=== PATIENT | female | born 1935 | race Caucasian/White ===

== ENCOUNTER 2020-05-01 06:57 | Outpatient (NON) | payer MEDICARE, SELFPAY ==
[2020-05-01 18:51] LABS: SARS-CoV-2 RNA PCR Negative
== END 2020-05-01 06:58 ==
PROVIDERS: PCP Internal Medicine; Visit Provider Internal Medicine
DX: Z20.828 Contact with and (suspected) exposure to other viral communicable diseases (principal)
CPT/HCPCS: 87635; C9803; U0003

== ENCOUNTER 2020-10-29 12:38 | Outpatient (CLI) | payer MEDICARE, SELFPAY ==
--- NOTE | ~2020-10-29 | DEXA_ITS ---
Bone Density Report Name: Gayatri Connor Age: 85 Sex: Female Ethnicity: White Date of : 1935 Indication: postmenopausal; screening for osteoporosis; height loss; Referring Provider: Andre Mayen Study: Bone densitometry was performed. Exam Date: October 29, 2020 Accession number: [id number] Bone Density: Region BMD T-score Z-score Classification AP Spine(L1-L4) 0.654 -3.6 -0.7 Osteoporosis Femoral Neck (Left) 0.506 -3.1 -0.6 Osteoporosis Total Hip (Left) 0.650 -2.4 -0.1 Osteopenia Femoral Neck (Right) 0.544 -2.7 -0.2 Osteoporosis Total Hip (Right) 0.681 -2.1 0.2 Osteopenia Femoral Neck Mean 0.525 -2.9 -0.4 Osteoporosis Total Hip Mean 0.666 -2.3 0.1 Osteopenia World Health Organization criteria for BMD impression classify patients as: Normal (T-score at or above -1.0), Osteopenia (T-score between -1.0 and -2.5), or Osteoporosis (T-score at or below -2.5). 10-year Fracture Risk: FRAX not reported because: Some T-score for Spine Total or Hip Total or Femoral Neck at or below -2.5 Clinical Information Provided by Patient: Has used the following medications: Vitamin D, Calcium Patient maximum height was 62 No regular weight bearing exercise Does not regularly consume dairy products Onset of menses at age 14 Number of children 4 Impression: The patient has osteoporosis, based on the Total Spine T-score. Discussion: INCREASED RISK OF FRACTURE. BONE DENSITY IS UNDESIRABLY LOW AT ONE OR MORE SKELETAL SITES, CONSISTENT WITH POSTMENOPAUSAL OSTEOPOROSIS. This patient's lowest T-score meets the World Health Organization's (WHO) criteria for osteoporosis at one or more sites (T-score -2.5 or below). In untreated patients, the risk of osteoporotic fracture increases approximately two-fold for each 1.0 SD decrease in T-score. Low bone density is not the only risk factor for fracture; also consider factors such as patient's age, frailty or poor health, risk of falling, risk of injury, previous osteoporotic fracture, family history of osteoporosis, cigarette smoking, low body weight, etc. Not everyone with low bone mineral density has osteoporosis; osteomalacia and other metabolic bone disorders should also be considered. Patients who have osteoporosis should be evaluated for specific diseases and conditions (secondary causes) that may cause or contribute to bone loss. The [place] [employer]ocrinologists (AACE) and National Osteoporosis Foundation (NOF) recommend pharmacologic intervention for all postmenopausal women whose T-score is in this range. The patient should follow a healthful lifestyle (good nutrition with adequate calcium and vitamin D, and appropriate weight-bearing exercise). Follow-Up: Consider a repeat BMD and Vertebral Fracture Assessment (VFA) e
[2020-10-29 12:52] LABS: Basophils Absolute Auto 0.03 K/mm3 (0.00-0.10); Basophils Percent Auto 0.5 % (0.0-1.0); Eosinophils Percent Auto 3.3 % (1.0-6.0); Hematocrit 39.3 % (35.0-42.0); Hemoglobin 12.8 g/dL (11.7-13.8); Immature Granulocyte Absolute 0.03 K/mm3 (0.00-0.00); Immature Granulocyte Percent A 0.5 % (0.0-0.0); Lymphocytes Absolute Auto 1.95 K/mm3 (1.10-4.50); Lymphocytes Percent Auto 32.3 % (18.0-42.0); Mean Corpuscular HGB Conc 32.6 g/dL (32.0-36.0); Mean Corpuscular Hemoglobin 28.9 pg (27.0-31.0); Mean Corpuscular Volume 88.7 fL (78.0-102.0); Mean Platelet Volume 9.5 fl (9.2-11.8); Monocytes Absolute Auto 0.37 K/mm3 (0.10-0.90); Monocytes Percent Auto 6.1 % (2.0-11.0); Neutrophils Absolute Auto 3.5 K/mm3 (1.7-7.2); Neutrophils Percent Auto 57.3 % (50.0-70.0); Platelet Count Result 180 K/mm3 (150-420); Red Blood Count 4.43 M/mm3 (4.20-5.40); Red Cell Distribution Width 12.5 % (11.6-14.4)
[2020-10-29 13:46] LABS: Alanine Aminotransferase 32 U/L (14-59); Albumin Level 3.5 g/dL (3.4-5.0); Alkaline Phosphatase 75 U/L (46-116); Anion Gap 9 mmol/L (8-16); Aspartate Amino Transferase 19 U/L (15-37); Bilirubin,Total 0.4 mg/dL (0.00-1.00); Blood Urea Nitrogen 15 mg/dL (7-18); Calcium 9.1 mg/dL (8.5-10.1); Carbon Dioxide 28 mmol/L (21-32); Chloride 103 mmol/L (98-108); Cholesterol 144 mg/dL (0-200); Estimated Glomerular Filt Rate > 60; Glucose 104 mg/dL (70-99); HDL Direct 59 mg/dL (40-60); LDL Cholesterol Calculated 64 mg/dL (<130); Osmolality Calculated 290 mOsm/kg (285-295); Potassium 4.4 mmol/L (3.5-5.1); Sodium 140 mmol/L (136-145); Triglycerides 107 mg/dL (0-150)
[2020-10-29 13:48] LABS: Thyroid Stimulating Hormone Reflex 1.53 u/IU/mL (0.36-3.74)
[2020-10-31 18:45] LABS: Vitamin D 25 Hydroxy >150 ng/mL (30-100)
== END 2020-10-29 12:39 | disposition home or self-care (01) ==
LOC: CHSIMG 12:41
PROVIDERS: PCP Family Medicine; Visit Provider Family Medicine
DX: E03.9 Hypothyroidism, unspecified (principal); E78.2 Mixed hyperlipidemia; E55.9 Vitamin D deficiency, unspecified; Z78.0 Asymptomatic menopausal state
CPT/HCPCS: 36415; 77080; 80053; 80061; 82306; 84443; 85025

== ENCOUNTER 2020-12-20 13:52 | Outpatient (CLI) | payer MEDICARE, SELFPAY ==
--- NOTE | 2020-12-20 13:53 | ECHO_ITS ---
Patient Info Name: Gayatri Connor Age: 85 years : 1935 Gender: Female Ht: 61 in Wt: 130 lbs BSA: 1.60 m2 HR: 86 bpm BP: 133 / 62 mmHg Exam Date: 12/20/2020 2:17 PM Exam Location: [facility] Patient Status: Outpatient Admit Date: 12/20/2020 Staff Ordering Physician: Andre Mayen MD [employer] Consultant: Sixto Ruiz, RENETTA, RT Attending Provider: Andre Mayen MD Referring Physician: Tiarra WILSON; Exam Type: CA echo doppler color flow Study Info Indications R01.1 - Cardiac murmur, unspecified Complete two-dimensional, color flow and Doppler transthoracic echocardiogram is performed. Strain analysis performed. Summary 1. Complete two-dimensional, color flow and Doppler transthoracic echocardiogram is performed. 2. Left ventricular chamber dimension is normal. 3. Left ventricular systolic function is normal, estimated at 65-70%. 4. The left ventricular diastolic function is abnormal. 5. E/e' 10 is mildly elevated. 6. Global longitudinal strain is normal at -19.2%. 7. Left atrial chamber dimension is mildly enlarged. 8. No pulmonary hypertension, estimated pulmonary arterial systolic pressure is 28 mmHg. Left Ventricle E/e' 10 is mildly elevated. Global longitudinal strain is normal at -19.2%. Left ventricular chamber dimension is normal. Left ventricular systolic function is normal, estimated at 65-70%. The left ventricular diastolic function is abnormal. Right Ventricle Right ventricular systolic function is normal and normal TAPSE 1.8 cm. Right ventricular chamber dimension is normal. Left Atria Left atrial chamber dimension is mildly enlarged. Right Atria Right atrial chamber dimension is normal. Aortic Valve The aortic valve is trileaflet. There is no aortic valve stenosis. There is no aortic valve regurgitation. Pulmonic Valve There is no pulmonic regurgitation. Mitral Valve There is no mitral valve stenosis. There is no mitral valve regurgitation. Tricuspid Valve There is no tricuspid valve regurgitation. No pulmonary hypertension, estimated pulmonary arterial systolic pressure is 28 mmHg. Pericardium/Pleural There is no pericardial effusion. Inferior Vena Cava Normal inferior vena cava with >50% collapse upon inspiration consistent with normal right atrial pressure, 5 mmHg. Aorta The aortic root size at the sinus of Valsalva is normal. Left Ventricular Outflow Tract Name Value Normal LVOT 2D LVOT Diameter 2.0 cm LVOT Doppler LVOT Peak Velocity 168 cm/s LVOT Peak Gradient 11 mmHg LVOT Mean Gradient 8 mmHg LVOT VTI 31 cm LVOT VTI/AV VTI Ratio 0.8 LVOT Stroke Volume 93 ml Mitral Valve Name Value Normal MV Doppler MV Decel Slop
== END 2020-12-20 13:53 | disposition home or self-care (01) ==
LOC: CHSIMG 13:53
PROVIDERS: PCP Family Medicine; Visit Provider Family Medicine
DX: I35.8 Other nonrheumatic aortic valve disorders (principal); R42 Dizziness and giddiness
CPT/HCPCS: 93306

== ENCOUNTER 2021-07-24 15:35 | Outpatient (CLI) | payer MEDICARE, SELFPAY ==
[2021-07-24 16:31] LABS: Thyroid Stimulating Hormone Reflex 1.04 u/IU/mL (0.36-3.74)
== END 2021-07-24 15:36 | disposition home or self-care (01) ==
LOC: CHSLAB 15:37
PROVIDERS: PCP Family Medicine; Visit Provider Family Medicine
DX: E11.9 Type 2 diabetes mellitus without complications (principal); E03.9 Hypothyroidism, unspecified; N39.0 Urinary tract infection, site not specified
CPT/HCPCS: 36415; 84443; 87077; 87086; 87088; 87186

== ENCOUNTER 2022-02-27 13:40 | Outpatient (CLI) | payer MEDICARE, SELFPAY ==
[2022-02-27 13:55] LABS: Hematocrit 39.1 % (35.0-42.0); Hemoglobin 12.5 g/dL (11.7-13.8); Mean Corpuscular Hemoglobin 28.9 pg (27.0-31.0); Mean Corpuscular Volume 90.3 fL (78.0-102.0); Mean Platelet Volume 9.5 fl (9.2-11.8); Platelet Count Result 200 K/mm3 (150-420); Red Blood Count 4.33 M/mm3 (4.20-5.40); Red Cell Distribution Width 12.6 % (11.6-14.4); White Blood Count 8.9 K/mm3 (4.8-10.8)
[2022-02-27 14:35] LABS: Alanine Aminotransferase 25 U/L (14-59); Albumin Level 3.6 g/dL (3.4-5.0); Alkaline Phosphatase 71 U/L (46-116); Anion Gap 6 mmol/L (8-16); Aspartate Amino Transferase 18 U/L (15-37); Bilirubin,Total 0.4 mg/dL (0.00-1.00); Blood Urea Nitrogen 17 mg/dL (7-18); Carbon Dioxide 28 mmol/L (21-32); Chloride 105 mmol/L (98-108); Cholesterol 149 mg/dL (0-200); Estimated Glomerular Filt Rate > 60; Glucose 109 mg/dL (70-99); HDL Direct 72 mg/dL (40-60); LDL Cholesterol Calculated 61 mg/dL (<130); Osmolality Calculated 290 mOsm/kg (285-295); Potassium 4.1 mmol/L (3.5-5.1); Sodium 139 mmol/L (136-145); Total Protein 6.9 g/dL (6.4-8.2); Triglycerides 82 mg/dL (0-150)
[2022-02-27 14:55] LABS: Thyroid Stimulating Hormone Reflex 2.01 u/IU/mL (0.36-3.74)
[2022-03-03 13:33] LABS: Vitamin D 1,25 (OH)2 Total 53 pg/mL (18-72); Vitamin D2 1,25 (OH)2 <8 pg/mL; Vitamin D3 1,25 (OH)2 53 pg/mL
== END 2022-02-27 13:41 | disposition home or self-care (01) ==
LOC: CHSLAB 13:41
PROVIDERS: PCP Family Medicine; Visit Provider Family Medicine
DX: E55.9 Vitamin D deficiency, unspecified (principal); E03.9 Hypothyroidism, unspecified; E78.2 Mixed hyperlipidemia; E11.9 Type 2 diabetes mellitus without complications
CPT/HCPCS: 36415; 80053; 80061; 82652; 84443; 85027

== ENCOUNTER 2022-05-28 15:10 | Outpatient (CLI) | payer MEDICARE, SELFPAY ==
[2022-05-28 15:27] LABS: Basophils Absolute Auto 0.03 K/mm3 (0.00-0.10); Basophils Percent Auto 0.3 % (0.0-1.0); Eosinophils Absolute Auto 0.14 K/mm3 (0.02-0.50); Eosinophils Percent Auto 1.5 % (1.0-6.0); Hematocrit 39.9 % (35.0-42.0); Hemoglobin 13.1 g/dL (11.7-13.8); Immature Granulocyte Absolute 0.03 K/mm3 (0.00-0.00); Immature Granulocyte Percent A 0.3 % (0.0-0.0); Lymphocytes Absolute Auto 1.73 K/mm3 (1.10-4.50); Lymphocytes Percent Auto 18.5 % (18.0-42.0); Mean Corpuscular HGB Conc 32.8 g/dL (32.0-36.0); Mean Corpuscular Hemoglobin 29.1 pg (27.0-31.0); Mean Corpuscular Volume 88.7 fL (78.0-102.0); Mean Platelet Volume 9.4 fl (9.2-11.8); Monocytes Absolute Auto 0.65 K/mm3 (0.10-0.90); Neutrophils Absolute Auto 6.8 K/mm3 (1.7-7.2); Neutrophils Percent Auto 72.4 % (50.0-70.0); Platelet Count Result 211 K/mm3 (150-420); Red Cell Distribution Width 12.6 % (11.6-14.4); White Blood Count 9.3 K/mm3 (4.8-10.8)
[2022-05-28 16:25] LABS: Alanine Aminotransferase 27 U/L (14-59); Albumin Level 3.6 g/dL (3.4-5.0); Alkaline Phosphatase 72 U/L (46-116); Anion Gap 5 mmol/L (8-16); Aspartate Amino Transferase 18 U/L (15-37); Bilirubin,Total 0.4 mg/dL (0.00-1.00); Blood Urea Nitrogen 10 mg/dL (7-18); Carbon Dioxide 31 mmol/L (21-32); Chloride 102 mmol/L (98-108); Estimated Glomerular Filt Rate > 60; Glucose 111 mg/dL (70-99); Iron 66 ug/dL (50-170); Osmolality Calculated 286 mOsm/kg (285-295); Percent Iron Saturation 22 % (12-57); Potassium 3.9 mmol/L (3.5-5.1); Sodium 138 mmol/L (136-145); Thyroid Stimulating Hormone 2.16 uIU/mL (0.36-3.74); Total Protein 7.2 g/dL (6.4-8.2)
[2022-06-01 09:39] LABS: Gliadin AB, IgG <1.0 U/mL (<15.0); TTG IGA AB <1.0 U/mL (<15.0)
[2022-06-02 15:08] LABS: Red Blood Cell Folate 673 ng/mL RBC (>280)
== END 2022-05-28 15:11 | disposition home or self-care (01) ==
LOC: CHSLAB 15:11
PROVIDERS: PCP Nurse Practitioner Family; Visit Provider Nurse Practitioner Family
DX: E03.9 Hypothyroidism, unspecified (principal); R63.0 Anorexia; R11.0 Nausea; D64.9 Anemia, unspecified
CPT/HCPCS: 36415; 80053; 82747; 83516; 83540; 83550; 84439; 84443; 85025; 86255

== ENCOUNTER 2022-05-30 15:25 | Outpatient (CLI) | payer MEDICARE, SELFPAY ==
[2022-05-30 15:55] LABS: Add Urine Microscopic? YES; Bilirubin Urine Negative (Negative); Blood Urine 2+ (Negative); Color Urine Light Yellow (Yellow); Glucose Urine UA Negative (Negative); Ketones Urine Negative (Negative); Leukocyte Esterase Ur 3+ LEU/UL (Negative); Nitrate Urine Negative (Negative); Protein Urine Negative (Negative); Specific Grav Ur 1.015 (1.010-1.020); Urobilinogen Urine 0.2 mg/dL (0.2-1.0); pH Urine 8.5 (5.0-8.0)
[2022-05-30 16:01] LABS: Appearance Urine Turbid (Clear); Bacteria Urine 4+ /hpf; Squamous Epithelial Cell Urine Few /hpf (Few); WBC Urine >75 /hpf (0-3)
== END 2022-05-30 15:26 | disposition home or self-care (01) ==
LOC: CHSLAB 15:28
PROVIDERS: PCP Nurse Practitioner Family; Visit Provider Nurse Practitioner Family
DX: R42 Dizziness and giddiness (principal); R11.10 Vomiting, unspecified; R11.0 Nausea; N81.10 Cystocele, unspecified; R82.90 Unspecified abnormal findings in urine
CPT/HCPCS: 81001; 87077; 87086; 87088; 87186

== ENCOUNTER 2022-07-25 12:40 | Emergency (ER) | payer MEDICARE, SELFPAY ==
--- NOTE | ~2022-07-25 | CT_ITS ---
EXAMINATION: CT abdomen pelvis wo con DATE: 07/25/2022 13:41 INDICATION: Nausea, vomiting, and diarrhea. TECHNIQUE: Computed tomography (CT) of the abdomen and pelvis was performed without intravenous contr ast. Automated exposure control and iterative reconstruction technique were employed. The dose-length product was 256.46 mGy-cm. COMPARISON: CT abdomen 07/15/2018 FINDINGS: The visualized portions of the lung bases demonstrate mild atelectasis. No pleural effusion . The heart size is normal. There are coronary artery calcifications. No pericardial effusion. There is fluid in the esophagus. There are surgical clips around the proximal stomach. There are cysts in t he liver measuring up to 14 mm. The common duct is dilated to 11 mm. The gallbladder, spleen, pancrea s, and adrenal glands are normal. There is a 12 mm mass of right kidney measuring soft tissue attenua tion. There is a 7 mm hemorrhagic cyst in left kidney. There are no dilated loops of bowel. There are no pathologically enlarged lymph nodes. There is no free intraperitoneal fluid. There is diverticulo sis of the colon without evidence of diverticulitis. There is a large volume of stool in the proximal colon with distention of the ascending colon. There are no pathologically enlarged lymph nodes. Ther e is no free intraperitoneal fluid. There is severe lower lumbar spondylosis. IMPRESSION: 1. Mildly dilated common duct, new from 07/15/18. 2. Large volume of stool in the proximal colon with distention of the ascending colon. 3. 12 mm right kidney mass which enhanced on prior imaging, consistent with renal cell carcinoma. Reviewed, dictated and finalized at location A. RIGGER IMPRESSION: 1. Mildly dilated common duct, new from 07/15/18. 2. Large volume of stool in the proximal colon with distention of the ascending colon. 3. 12 mm right kidney mass which enhanced on prior imaging, consistent with andrea al cell carcinoma.
[2022-07-25 12:40] VITALS: BP 113/69; PULSE 90; RESP 18; TEMP 37.3; O2SAT 98
--- NOTE | 2022-07-25 12:46 | ED.NAVMDI ---
HPI - Nausea/Vomiting/Diarrhea General Chief complaint: Nausea/Vomiting/Diarrhea Stated complaint: Sick/Dizziness Time Seen by Provider: 07/25/22 12:40 Source: patient Mode of arrival: ambulatory Limitations: no limitations History of Present Illness HPI Narrative: 87 year old female is sent to the Emergency Department from Primary Care Providers office for evaluation. Patient has been having nausea and vomiting for several days. States she is unable to keep anything down. She states she did have very small bowel movement yesterday. Has been using Miralax. Denies any significant abdominal pain, but has some discomfort lower abdomen. Denies any urinary tract symptoms. Patient's daughter also states patient has had some dizziness or light headedness for past several months. This occurs when she changes positions or gets up and goes away after short time. Denies chest pain or shortness of breath. MD elicited complaint: nausea and vomiting Onset (ago): day(s) Description of vomiting: food contents Associated nausea: Yes Associated abdominal pain: Yes (mild lower abdominal discomfort) Location of pain: LLQ and suprapubic Severity: mild Quality: cramping Exacerbating factors: eating Relieving factors: none Associated symptoms: denies other symptoms Treatment prior to arrival: other (zofran) Related Data Home Medications Medication Instructions Recorded Confirmed multivitamin,ow-ztme-kbnxzxak 1 tablet PO DAILY 04/12/20 07/25/22 (Complete Multivitamin tablet) omega-3 fatty acids 1,000 mg 1,000 mg PO DAILY 04/12/20 07/25/22 capsule (Fish Oil Concentrate) multivitamin with iron (Daily 1 tablet PO DAILY 10/25/20 07/25/22 Multiple Vitamins with Iron tablet) Allergies Allergy/AdvReac Type Severity Reaction Status Date / Time aspirin Allergy Unknown Rash Verified 07/25/22 11:34 codeine Allergy Unknown Unknown Verified 07/25/22 11:34 iodine Allergy Unknown Unknown Verified 07/25/22 11:34 latex Allergy Unknown Unknown Verified 07/25/22 11:34 levofloxacin Allergy Unknown Unknown Verified 07/25/22 11:34 mold Allergy Unknown Unknown Verified 07/25/22 11:34 pollen extracts Allergy Unknown Unknown Verified 07/25/22 11:34 Latex, Natural Rubber AdvReac Mild ITCHY, RASH Verified 07/25/22 11:34 Review of Systems Review of Systems: All systems reviewed & are unremarkable except as noted in HPI and below Constitutional: Constitutional: Reports as per HPI, Reports no additional constitutional complaints, Denies chills, Denies fever(s) and Denies weakness Eyes: Eyes: Reports as per HPI and Reports no additional eye complaints ENT: Reports system reviewed and no additional complaints, except as documented, Reports as per HPI, Reports dizziness, Denies nasal congestion and Denies sore throat Cardiovascular: Cardiovascular: Reports as per HPI, Reports no additional cardiovascular complaints, Denies chest pain, Denies rapid heart rate and Denies slow heart rate Respiratory: Respiratory: Reports as per HPI, Reports no additional respiratory complaints, Denies chest congestion, Denies cough and Denies dyspnea Gastrointestinal: Gastrointestinal: Reports as per HPI, Reports no additional gastrointestinal complaints, Denies diarrhea, Reports nausea and Reports vomiting Genitourinary: Genitourinary: Reports no additional female genitourinary complaints, Reports as per HPI, Denies nocturia, Denies dysuria and Denies flank pain Musculoskeletal: Musculoskeletal: Reports no additional musculoskeletal complaints, Reports as per HPI, Denies back pain and Denies myalgias Integumentary/Breasts: Skin/Breast: Reports system reviewed and no additional complaints, except as docu and Reports as per HPI Neurologic: Reports system reviewed and no additional complaints, except as documented, Reports as per HPI and Reports dizziness (initially when getting up) Psychiatric: Psychiatric: Reports no additional psychiatric complaints and Reports as per HPI Endocrine:
[2022-07-25 13:01] LABS: Basophils Absolute Auto 0.02 K/mm3 (0.00-0.10); Basophils Percent Auto 0.2 % (0.0-1.0); Eosinophils Absolute Auto 0.08 K/mm3 (0.02-0.50); Eosinophils Percent Auto 0.9 % (1.0-6.0); Hematocrit 38.9 % (35.0-42.0); Hemoglobin 13.1 g/dL (11.7-13.8); Immature Granulocyte Absolute 0.03 K/mm3 (0.00-0.00); Immature Granulocyte Percent A 0.4 % (0.0-0.0); Lymphocytes Absolute Auto 1.65 K/mm3 (1.10-4.50); Lymphocytes Percent Auto 19.5 % (18.0-42.0); Mean Corpuscular HGB Conc 33.7 g/dL (32.0-36.0); Mean Corpuscular Hemoglobin 29.8 pg (27.0-31.0); Mean Corpuscular Volume 88.6 fL (78.0-102.0); Mean Platelet Volume 9.7 fl (9.2-11.8); Monocytes Absolute Auto 0.49 K/mm3 (0.10-0.90); Monocytes Percent Auto 5.8 % (2.0-11.0); Neutrophils Absolute Auto 6.2 K/mm3 (1.7-7.2); Neutrophils Percent Auto 73.2 % (50.0-70.0); Platelet Count Result 221 K/mm3 (150-420); Red Blood Count 4.39 M/mm3 (4.20-5.40); Red Cell Distribution Width 12.6 % (11.6-14.4); White Blood Count 8.5 K/mm3 (4.8-10.8)
[2022-07-25 13:04] LABS: Appearance Urine Clear (Clear); Bilirubin Urine Negative (Negative); Blood Urine 1+ (Negative); Color Urine Yellow (Yellow); Glucose Urine UA Negative (Negative); Ketones Urine Negative (Negative); Leukocyte Esterase Ur 3+ LEU/UL (Negative); Nitrate Urine Negative (Negative); Protein Urine Negative (Negative); Urobilinogen Urine 0.2 mg/dL (0.2-1.0)
[2022-07-25 13:11] LABS: Add Urine Microscopic? YES; RBC Urine 0-2 /hpf (0-2)
[2022-07-25 13:12] LABS: Bacteria Urine 4+ /hpf; Squamous Epithelial Cell Urine Rare /hpf (Few); WBC Urine >75 /hpf (0-3)
[2022-07-25 13:14] LABS: Alanine Aminotransferase 24 U/L (14-59); Albumin Level 3.5 g/dL (3.4-5.0); Alkaline Phosphatase 73 U/L (46-116); Amylase 37 U/L (25-115); Anion Gap 10 mmol/L (8-16); Aspartate Amino Transferase 15 U/L (15-37); Bilirubin,Total 0.4 mg/dL (0.00-1.00); Blood Urea Nitrogen 13 mg/dL (7-18); Calcium 9.4 mg/dL (8.5-10.1); Carbon Dioxide 26 mmol/L (21-32); Chloride 104 mmol/L (98-108); Estimated CRCL calculation 33 ml/min; Estimated Glomerular Filt Rate > 60; Glucose 141 mg/dL (70-99); Lipase 13 U/L (16-77); Osmolality Calculated 292 mOsm/kg (285-295); Sodium 140 mmol/L (136-145); Total Protein 7.5 g/dL (6.4-8.2)
[2022-07-25] MEDS: SODIUM CHLORIDE 0.9% IV 1,000 ML 150 ML IV CONT (13:17)
[2022-07-25] MEDS: ONDANSETRON INJ 4 MG/2 ML VIAL IV PUSH (13:17)
[2022-07-25 14:22] VITALS: BP 134/73; PULSE 84; RESP 20; TEMP 37.3; O2SAT 97
[2022-07-25 14:23] VITALS: BP 134/73; PULSE 74; RESP 18; TEMP 37.3; O2SAT 97
--- NOTE | 2022-07-29 13:07 | PC.NURSE ---
final urine culture report reviewed. >100,000 E. coli found, pt prescribed macrobid at discharge. no change in plan of care.
== END 2022-07-25 14:34 | disposition home or self-care (01) ==
PROVIDERS: Emergency Provider Emergency Medicine; PCP Family Medicine
DX: N28.89 Other specified disorders of kidney and ureter (principal); N39.0 Urinary tract infection, site not specified; R11.10 Vomiting, unspecified; E78.2 Mixed hyperlipidemia; E03.9 Hypothyroidism, unspecified; Z87.891 Personal history of nicotine dependence
CPT/HCPCS: 36415; 74176; 80053; 81001; 82150; 83690; 85025; 87077; 87086; 87088; 87186; 96361; 96374; 99284; J2405; J7030

== ENCOUNTER 2022-09-22 08:48 | Day surgery (SDC) | payer MEDICARE, SELFPAY ==
[2022-09-03 10:53] VITALS: BMI 21.3
--- NOTE | 2022-09-09 08:21 | PM.HPGS ---
History of Present Illness History of Present Illness Consent: Risks, benefits, and alternatives have been discussed and questions answered. Patient agrees to proceed with procedure. Chief complaint: Gerd Narrative: Gayatri Connor is a 87 year old female with dysphagia. Food does not get stuck when he is eating, but she often feels as though there is something that is caught in her throat. She also has lost her appetite. Since she had COVID in April she does not feel like eating often and has consequently lost about 15 lb. She denies abdominal pain. Review of Systems Review of Systems: All systems reviewed & are unremarkable except as noted in HPI and below PMFSH Past Medical History Medical History Anxiety Bladder prolapse, female, acquired Exocrine pancreatic insufficiency Hypothyroidism (acquired) Major depression, recurrent, chronic Mixed hyperlipidemia Personal history of colonic polyps Vitamin D deficiency, unspecified Surgical History Surgical History History of esophageal surgery History of hysterectomy Family History Family History Other Asthma Carcinoma of colon Cerebrovascular accident Diabetes mellitus Family history of arthritis Family history of cardiovascular disease Social History Social History Smoking status: Never smoker Smoking end date: 05/25/69 Alcohol intake: former Substance use: never Substance use type: does not use Living arrangements: alone Occupation/Education: retired Spiritual care concerns: No Meds Home Medications and Allergies Home Medications Medication Instructions Recorded Confirmed Type multivitamin,oj-clxx-jmntisvm 1 tablet PO DAILY 04/12/20 09/22/22 History (Complete Multivitamin tablet) paroxetine HCl 40 mg tablet 40 mg PO DAILY 90 days #90 tabs 10/02/21 09/22/22 Rx omeprazole 20 mg capsule,delayed See Rx Instructions .Route 10/28/21 09/22/22 Rx release .COMPLEX #90 caps rosuvastatin 20 mg tablet 20 mg PO DAILY #90 tabs 01/22/22 09/22/22 Rx cholecalciferol (vitamin D3) 1,250 1,250 mcg PO 2XW #27 caps 03/17/22 09/22/22 Rx mcg (50,000 unit) capsule Synthroid 50 mcg tablet 50 mcg PO DAILY #90 tabs 04/23/22 09/22/22 Rx (levothyroxine) ubuudm-akvhxqea-jiskbpt 2 cap PO TID 08/01/22 09/22/22 History 25,000-79,000-105,000 unit capsule,delayed rel (Zenpep) lactulose 20 gram/30 mL oral 20 g (30 mL) PO BID PRN 08/28/22 09/22/22 Rx solution constipation #1,200 mL Allergies Allergy/AdvReac Type Severity Reaction Status Date / Time aspirin Allergy Unknown GI-BLEED Verified 09/22/22 09:51 codeine Allergy Unknown Fatigued Verified 09/22/22 09:51 iodine Allergy Unknown CHEST Verified 09/22/22 09:51 PRESSURE latex Allergy Unknown ITYCY, RASH Verified 09/22/22 09:51 levofloxacin Allergy Unknown Joint Pain Verified 09/22/22 09:51 mold Allergy Unknown RESPITORY Verified 09/22/22 09:51 DISTRESS pollen extracts Allergy Unknown RESPITORY Verified 09/22/22 09:51 DISTRESS sulfamethoxazole AdvReac Intermediate Shakes Verified 09/22/22 09:51 [From Bactrim] trimethoprim [From Bactrim] AdvReac Intermediate Shakes Verified 09/22/22 09:51 Latex, Natural Rubber AdvReac Mild ITCHY, RASH Verified 09/22/22 09:51 Exam Const: General: alert Orientation/consciousness: patient oriented x3 Resp: Auscultation: clear to auscultation bilaterally Cardio: Rhythm: regular rhythm GI: GI Palp: Yes Soft to palpation and No Tenderness to palpation present (GI) Neuro: General: patient oriented x3 Assessment and Plan Assessment and plan (1) Dysphagia: Code(s): R13.10 - Dysphagia, unspecified Status: Acute Assessment and Plan: EGD with possible biopsy or dilatation or cautery.
[2022-09-22 09:20] VITALS: BP 128/92; PULSE 88; RESP 20; TEMP 36.7; O2SAT 97
--- NOTE | 2022-09-22 09:37 | WPDANESEPPF ---
Anes - Initial Pre Proc Eval Procedure: Operation Date: 09/22/22 10:30 Proposed Procedures p Esophagogastroduodenoscopy - Dejuan Grijalva MD Date/Time: 09/22/22 09:37 Surgeon: Dejuan Grijalva MD Pre Op Diagnosis: Gerd Patient Data Age: 87 Gender: F Height: 1.57 m Weight: 53 kg Allergies Allergy/AdvReac Type Severity Reaction Status Date / Time aspirin Allergy Unknown GI-BLEED Verified 08/28/22 10:45 codeine Allergy Unknown Fatigued Verified 08/28/22 10:45 iodine Allergy Unknown CHEST Verified 08/28/22 10:45 PRESSURE latex Allergy Unknown ITYCY, RASH Verified 08/28/22 10:45 levofloxacin Allergy Unknown Joint Pain Verified 08/28/22 10:45 mold Allergy Unknown RESPITORY Verified 08/28/22 10:45 DISTRESS pollen extracts Allergy Unknown RESPITORY Verified 08/28/22 10:45 DISTRESS sulfamethoxazole AdvReac Intermediate Shakes Verified 08/28/22 10:45 [From Bactrim] trimethoprim [From Bactrim] AdvReac Intermediate Shakes Verified 08/28/22 10:45 Latex, Natural Rubber AdvReac Mild ITCHY, RASH Verified 08/28/22 10:45 Home Medications Medication Instructions Recorded Confirmed Type multivitamin,hv-rsmm-yzkckgii 1 tablet PO DAILY 04/12/20 09/03/22 History (Complete Multivitamin tablet) paroxetine HCl 40 mg tablet 40 mg PO DAILY 90 days #90 tabs 10/02/21 09/03/22 Rx omeprazole 20 mg capsule,delayed See Rx Instructions .Route 10/28/21 09/03/22 Rx release .COMPLEX #90 caps rosuvastatin 20 mg tablet 20 mg PO DAILY #90 tabs 01/22/22 09/03/22 Rx cholecalciferol (vitamin D3) 1,250 1,250 mcg PO 2XW #27 caps 03/17/22 09/03/22 Rx mcg (50,000 unit) capsule Synthroid 50 mcg tablet 50 mcg PO DAILY #90 tabs 04/23/22 09/03/22 Rx (levothyroxine) ynvtiu-zllyejmm-hyihlxt 2 cap PO TID 08/01/22 09/03/22 History 25,000-79,000-105,000 unit capsule,delayed rel (Zenpep) lactulose 20 gram/30 mL oral 20 g (30 mL) PO BID PRN 08/28/22 08/28/22 Rx solution constipation #1,200 mL Patient hx anesthesia problems: none Family hx anesthesia problems: none Results Review: All pre-operative results and documents have been reviewed as part of the pre-operative evaluation. [facility] Past Medical History Medical History Anxiety Bladder prolapse, female, acquired Exocrine pancreatic insufficiency Hypothyroidism (acquired) Major depression, recurrent, chronic Mixed hyperlipidemia Personal history of colonic polyps Vitamin D deficiency, unspecified Surgical History Surgical History History of esophageal surgery History of hysterectomy Family History Family History Other Asthma Carcinoma of colon Cerebrovascular accident Diabetes mellitus Family history of arthritis Family history of cardiovascular disease Social History Social History Smoking status: Never smoker Smoking end date: 05/25/69 Alcohol intake: former Substance use: never Substance use type: does not use Living arrangements: alone Occupation/Education: retired Spiritual care concerns: No Anes - Eval Final PreProcedure Day of Procedure 09/22/22 09:37 Patient weight: normal Heart: regular rate and rhythm Lungs: clear to auscultation Airway: Mallampati scale class II Neurological: alert and oriented Last oral intake: >/= 8 hours ASA classification: II Emergent: no Anesthetic plan: proceed Anesthesia type and monitoring: general GIVS and standard monitoring Results Review: All pre-operative results and documents have been reviewed as part of the pre-operative evaluation. Informed Consent: The patient's anesthetic plan and its attendant risks and benefits were discussed with the patient/family/POA. Questions were solicited and answers provided to the satisfaction of the patient
[2022-09-22] MEDS: LACTATED RINGERS 1,000 ML 150 ML IV CONT (09:53)
[2022-09-22 10:34] VITALS: BP 137/62; PULSE 75; RESP 16; O2SAT 96
[2022-09-22 10:44] VITALS: BP 120/72; PULSE 97; RESP 16; O2SAT 97
[2022-09-22 10:54] VITALS: BP 131/73; PULSE 72; RESP 20; O2SAT 96
--- NOTE | 2022-09-22 11:01 | WPDANESPN ---
Anes - Prog Note Post-Op Date/Time: 09/22/22 11:01 Cardiovascular status: normal Respiratory status: normal Airway patency: baseline Mental status: baseline Post-Op hydration status: normal Vital Signs: Last Vital Signs Temp 36.7 C 09/22/22 09:20 Pulse 72 09/22/22 10:54 Resp 20 09/22/22 10:54 BP 131/73 09/22/22 10:54 Pulse Ox 96 09/22/22 10:54 O2 Del Method Room Air 09/22/22 10:54 Pain Score (VAS): 0 I/O: Intake & Output 09/21/22 09/22/22 09/22/22 23:59 07:59 15:59 Intake Total 400 Balance 400 Patient Feedback: Patient satisfied with anesthetic care.
== END 2022-09-22 11:15 | disposition home or self-care (01) ==
PROVIDERS: PCP Family Medicine; Visit Provider Internal Medicine Gastroenterology
PROC: 0DJ08ZZ Inspection of Upper Intestinal Tract, Via Natural or Artificial Opening Endoscopic (ICD-10-PCS; CPT 43235; principal; 2022-09-22 10:30)
DX: R13.10 Dysphagia, unspecified (principal)
CPT/HCPCS: 43239

== ENCOUNTER 2022-09-22 09:00 | Outpatient (NON) | payer MEDICARE, SELFPAY | END 2022-09-22 09:01 | disposition home or self-care (01) | LOC: ANHLAB 09-23 07:42 | PROVIDERS: PCP Family Medicine; Visit Provider Internal Medicine Gastroenterology | DX: K21.9 Gastro-esophageal reflux disease without esophagitis (principal) | CPT/HCPCS: 88305; 88312 ==

== ENCOUNTER 2022-11-06 15:55 | Outpatient (NON) | payer MEDICARE, SELFPAY | END 2022-11-06 15:56 | disposition home or self-care (01) | LOC: CHSLAB 15:57 | PROVIDERS: Visit Provider Nurse Practitioner Family | DX: R42 Dizziness and giddiness (principal); N39.0 Urinary tract infection, site not specified | CPT/HCPCS: 87077; 87086; 87088; 87186 ==

== ENCOUNTER 2023-01-25 12:45 | Emergency (ER) | payer MEDICARE, SELFPAY ==
--- NOTE | ~2023-01-25 | CT_ITS ---
EXAMINATION: CT brain wo con INDICATION: Dizziness COMPARISON: None TECHNIQUE: Standard unenhanced head CT. The dose-length product (DLP) was 605.33 mGy-cm. The mA was a djusted according to patient size. Iterative reconstruction technique was employed. FINDINGS: No acute intraparenchymal hemorrhage. No evidence of mass lesion. No evidence of acute infa rction. There is mild periventricular and subcortical hypodensity probably related to small vessel is chemic disease. There is mild prominence of the sulci and ventricles related to cerebral atrophy. Int racranial calcified cerebral atherosclerosis is noted. No extra-axial collections. No mass effect or midline shift. Changes in the globes are likely from ocular lens surgery. There is mild mucosal thick ening of the paranasal sinuses. IMPRESSION: 1. No acute intracranial abnormality. 2. Age related findings. Reviewed, dictated and finalized at location A.
--- NOTE | ~2023-01-25 | XR_ITS ---
EXAMINATION: XR chest 2V DATE: 01/25/2023 13:17 INDICATION: Nausea and vomiting TECHNIQUE: PA and lateral views of the chest are obtained. COMPARISON: 01/20/2017 FINDINGS: The lungs are free of acute opacities. No pleural effusion or pneumothorax. The cardiomedia stinal silhouette is normal. There is moderate thoracic spondylosis. Changes of hiatal hernia repair are noted. IMPRESSION: 1. No acute cardiopulmonary abnormality. Reviewed, dictated and finalized at location A.
--- NOTE | 2023-01-25 12:47 | ECG_ITS ---
Measurements Intervals [place] Rate: 76 P: 45 MT: 155 QRS: 34 QRSD: 82 T: 47 QT: 380 QTc: 428 Interpretive Statements SINUS RHYTHM BASELINE ARTIFACT- I, II, III, AVR, AVL, AVF, V1-V2 NORMAL ECG NO PREVIOUS ECG AVAILABLE FOR COMPARISON Electronically Signed On 01-25-2023 16:52:13 CDT by Harley Vincent D.O.
[2023-01-25 12:49] VITALS: BP 144/82; PULSE 84; RESP 16; TEMP 37.2; O2SAT 98
--- NOTE | 2023-01-25 12:54 | ED.DIZZY ---
HPI - Dizziness General Chief Complaint: Dizziness Stated Complaint: vomiting Time Seen by Provider: 01/25/23 12:47 Source: patient and family Mode of arrival: ambulatory Limitations: no limitations History of Present Illness HPI Narrative: patient is an 87-year-old female with wooziness and dizziness on and off for many months but has gotten worse over the past 2 days. She also has GI reflux and had an upper endoscopy done with minimal findings recently. She has been having nausea and some vomiting with phlegm type vomit. She has been unable to eat or drink lately due to some of the nausea vomiting issues. No chest pain today but had some chest pain a couple weeks ago. MD elicited complaint: dizziness and lightheadedness Onset (ago): month(s) ( She has been having difficulty similar to this over months but worse today) Timing: gradual onset Severity: moderate Description: lightheadedness Context: change in body position History of similar symptoms: Yes Exacerbating factors: movement/ambulation and change in body position Relieving factors: nothing Associated symptoms: nausea, vomiting, chest pain, malaise and weakness Stroke scale total: 0 Related Data Home Medications Medication Instructions Recorded Confirmed multivitamin,kd-kwoc-myxlzodb 1 tablet PO DAILY 04/12/20 01/25/23 (Complete Multivitamin tablet) Allergies Allergy/AdvReac Type Severity Reaction Status Date / Time aspirin Allergy Unknown GI-BLEED Verified 11/06/22 10:38 codeine Allergy Unknown Fatigued Verified 11/06/22 10:38 iodine Allergy Unknown CHEST Verified 11/06/22 10:38 PRESSURE latex Allergy Unknown ITYCY, RASH Verified 11/06/22 10:38 levofloxacin Allergy Unknown Joint Pain Verified 11/06/22 10:38 mold Allergy Unknown RESPITORY Verified 11/06/22 10:38 DISTRESS pollen extracts Allergy Unknown RESPITORY Verified 11/06/22 10:38 DISTRESS sulfamethoxazole AdvReac Intermediate Shakes Verified 11/06/22 10:38 [From Bactrim] trimethoprim [From Bactrim] AdvReac Intermediate Shakes Verified 11/06/22 10:38 Latex, Natural Rubber AdvReac Mild ITCHY, RASH Verified 11/06/22 10:38 Review of Systems Review of Systems: All systems reviewed & are unremarkable except as noted in HPI and below Constitutional: Constitutional: Reports no additional constitutional complaints Eyes: Eyes: Reports no additional eye complaints ENT: Reports system reviewed and no additional complaints, except as documented Cardiovascular: Cardiovascular: Reports no additional cardiovascular complaints Respiratory: Respiratory: Reports no additional respiratory complaints Gastrointestinal: Gastrointestinal: Reports no additional gastrointestinal complaints Genitourinary: Genitourinary: Reports no additional female genitourinary complaints Musculoskeletal: Musculoskeletal: Reports no additional musculoskeletal complaints Integumentary/Breasts: Skin/Breast: Reports system reviewed and no additional complaints, except as docu Neurologic: Reports system reviewed and no additional complaints, except as documented Psychiatric: Psychiatric: Reports no additional psychiatric complaints Endocrine: Endocrine: Reports no additional endocrine complaints Hematologic/Lymphatic: Hematologic/Lymphatic: Reports no additional hematologic/lymphatic complaints Allergic/Immunologic: Allergic/Immunologic: Reports no additional allergic/immunologic complaints PMFSH Past Medical History Medical History Anxiety Bladder prolapse, female, acquired Exocrine pancreatic insufficiency Hypothyroidism (acquired) Major depression, recurrent, chronic Mixed hyperlipidemia Personal history of colonic polyps Vitamin D deficiency, unspecified Surgical History Surgical History History of esophageal surgery History of hysterectomy Family History Family History (Reviewed
[2023-01-25 13:34] LABS: Basophils Absolute Auto 0.02 K/mm3 (0.00-0.10); Basophils Percent Auto 0.3 % (0.0-1.0); Eosinophils Absolute Auto 0.15 K/mm3 (0.02-0.50); Hemoglobin 13.4 g/dL (11.7-13.8); Immature Granulocyte Absolute 0.04 K/mm3 (0.00-0.00); Immature Granulocyte Percent A 0.5 % (0.0-0.0); Lymphocytes Absolute Auto 1.61 K/mm3 (1.10-4.50); Mean Corpuscular HGB Conc 33.5 g/dL (32.0-36.0); Mean Corpuscular Hemoglobin 29.5 pg (27.0-31.0); Mean Corpuscular Volume 88.1 fL (78.0-102.0); Mean Platelet Volume 9.6 fl (9.2-11.8); Monocytes Absolute Auto 0.59 K/mm3 (0.10-0.90); Monocytes Percent Auto 8.1 % (2.0-11.0); Neutrophils Absolute Auto 4.9 K/mm3 (1.7-7.2); Neutrophils Percent Auto 67.1 % (50.0-70.0); Platelet Count Result 211 K/mm3 (150-420); Red Blood Count 4.54 M/mm3 (4.20-5.40); Red Cell Distribution Width 12.8 % (11.6-14.4); White Blood Count 7.3 K/mm3 (4.8-10.8)
[2023-01-25 13:52] LABS: Lactic Acid Reflex 1.6 mmol/L (0.4-2.0)
[2023-01-25 13:57] LABS: Alanine Aminotransferase 22 U/L (14-59); Albumin Level 3.6 g/dL (3.4-5.0); Alkaline Phosphatase 67 U/L (46-116); Anion Gap 7 mmol/L (8-16); Aspartate Amino Transferase 13 U/L (15-37); Bilirubin,Total 0.5 mg/dL (0.00-1.00); Blood Urea Nitrogen 20 mg/dL (7-18); Calcium 9.4 mg/dL (8.5-10.1); Carbon Dioxide 30 mmol/L (21-32); Chloride 101 mmol/L (98-108); Estimated Glomerular Filt Rate > 60; Glucose 114 mg/dL (70-99); NT Pro B Type Natriuretic Pept 189 pg/mL (0-450); Osmolality Calculated 289 mOsm/kg (285-295); Potassium 3.9 mmol/L (3.5-5.1); Sodium 138 mmol/L (136-145); Total Protein 7.4 g/dL (6.4-8.2); Troponin I 15.9 ng/L (0.00-60.4)
[2023-01-25] MEDS: ONDANSETRON HCL ODT 4 MG TABLET PO (15:00)
[2023-01-25] MEDS: MECLIZINE HCL 25 MG TABLET PO (15:00)
[2023-01-25 16:03] LABS: Bilirubin Urine Negative (Negative); Blood Urine 1+ (Negative); Color Urine Light Yellow (Yellow); Glucose Urine UA Negative (Negative); Ketones Urine Negative (Negative); Leukocyte Esterase Ur Negative LEU/UL (Negative); Nitrate Urine Negative (Negative); Protein Urine Negative (Negative); Specific Grav Ur 1.015 (1.010-1.020); Urobilinogen Urine 0.2 mg/dL (0.2-1.0); pH Urine 8.5 (5.0-8.0)
[2023-01-25 16:16] LABS: Add Urine Microscopic? YES; Appearance Urine Cloudy (Clear)
[2023-01-25 16:17] LABS: Amorphous Sediment Urine Heavy; Bacteria Urine 2+ /hpf; Mucus Urine Heavy /lpf
[2023-01-25 16:26] VITALS: BP 142/72; BP 145/88; PULSE 80; PULSE 84; RESP 20; TEMP 36.6; O2SAT 96; O2SAT 98
== END 2023-01-25 16:43 | disposition home or self-care (01) ==
PROVIDERS: Emergency Provider Emergency Medicine; PCP Family Medicine
DX: N39.0 Urinary tract infection, site not specified (principal); H81.10 Benign paroxysmal vertigo, unspecified ear; E03.9 Hypothyroidism, unspecified
CPT/HCPCS: 36415; 70450; 71046; 80053; 81001; 83605; 83880; 84484; 85025; 93005; 99284; A9270

== ENCOUNTER 2023-01-30 21:22 | Emergency (ER) | payer MEDICARE, SELFPAY ==
--- NOTE | ~2023-01-30 | XR_ITS ---
EXAMINATION: XR chest 1V portable DATE: 01/30/2023 21:36 INDICATION: Chest pain TECHNIQUE: frontal view of the chest was obtained. COMPARISON: Chest radiograph dated 01/25/23 FINDINGS: The lungs remain clear with no focal airspace opacities, pulmonary edema, pleural effusion or pneumot horax. Heart size is normal. Tortuous and atherosclerotic aorta. Postoperative changes in the epigast jerzy region. IMPRESSION: 1. No acute cardiopulmonary disease. Reviewed, dictated and finalized at location A.
[2023-01-30 21:25] VITALS: BP 175/83; PULSE 81; RESP 20; TEMP 36.4; O2SAT 100
--- NOTE | 2023-01-30 21:26 | ECG_ITS ---
Measurements Intervals [place] Rate: 79 P: 48 GA: 179 QRS: 34 QRSD: 76 T: 60 QT: 373 QTc: 428 Interpretive Statements SINUS RHYTHM POSSIBLE LEFT ATRIAL ENLARGEMENT BASELINE ARTIFACT- I, II, III, AVR, AVL, AVF, V1-V6 BORDERLINE ECG COMPARED TO ECG 01/25/2023 12:58:37 NO SIGNIFICANT CHANGES Electronically Signed On 01-31-2023 7:02:42 CDT by Harley Vincent D.O.
--- NOTE | 2023-01-30 21:32 | ED.CHESTPAIN ---
HPI - Chest Pain General Chief Complaint: Chest Pain Stated Complaint: Chest Pain Time Seen by Provider: 01/30/23 21:26 Source: patient and family Mode of arrival: ambulatory Limitations: no limitations History of Present Illness HPI narrative: patient is 87-year-old female with chest pain this evening. I saw her earlier this week with dizziness and found to be a UTI and was given Keflex, Zofran and meclizine. She vomited once this evening after dinner and is having some burning chest pain at this time. MD complaint: chest pain Onset (ago): minute(s) Timing of current episode: constant Prior episodes: No Onset: during rest and after eating Pain location: substernal and epigastric Pain radiation: none Severity: mild Pain scale (0-10): 3 Quality: sharp Relieving factors: nothing Exacerbating factors: eating Associated symptoms: nausea, vomiting and sense of impending doom (anxious) Treatment prior to arrival: none Risk Factors Coronary artery disease risk factors: hyperlipidemia Thoracic aortic dissection risk factors: none Related Data On Oral Contraceptives: No Home Medications Medication Instructions Recorded Confirmed multivitamin,[id number] 1 tablet PO DAILY 04/12/20 01/30/23 (Complete Multivitamin tablet) Allergies Allergy/AdvReac Type Severity Reaction Status Date / Time aspirin Allergy Unknown GI-BLEED Verified 01/29/23 07:16 codeine Allergy Unknown Fatigued Verified 01/29/23 07:16 iodine Allergy Unknown CHEST Verified 01/29/23 07:16 PRESSURE latex Allergy Unknown ITYCY, RASH Verified 01/29/23 07:16 levofloxacin Allergy Unknown Joint Pain Verified 01/29/23 07:16 mold Allergy Unknown RESPITORY Verified 01/29/23 07:16 DISTRESS pollen extracts Allergy Unknown RESPITORY Verified 01/29/23 07:16 DISTRESS sulfamethoxazole AdvReac Intermediate Shakes Verified 01/29/23 07:16 [From Bactrim] trimethoprim [From Bactrim] AdvReac Intermediate Shakes Verified 01/29/23 07:16 Latex, Natural Rubber AdvReac Mild ITCHY, RASH Verified 01/29/23 07:16 Review of Systems Review of Systems: All systems reviewed & are unremarkable except as noted in HPI and below Constitutional: Constitutional: Reports no additional constitutional complaints Eyes: Eyes: Reports no additional eye complaints ENT: Reports system reviewed and no additional complaints, except as documented Cardiovascular: Cardiovascular: Reports no additional cardiovascular complaints Respiratory: Respiratory: Reports no additional respiratory complaints Gastrointestinal: Gastrointestinal: Reports no additional gastrointestinal complaints Genitourinary: Genitourinary: Reports no additional female genitourinary complaints Musculoskeletal: Musculoskeletal: Reports no additional musculoskeletal complaints Integumentary/Breasts: Skin/Breast: Reports system reviewed and no additional complaints, except as docu Neurologic: Reports system reviewed and no additional complaints, except as documented Psychiatric: Psychiatric: Reports no additional psychiatric complaints Endocrine: Endocrine: Reports no additional endocrine complaints Hematologic/Lymphatic: Hematologic/Lymphatic: Reports no additional hematologic/lymphatic complaints Allergic/Immunologic: Allergic/Immunologic: Reports no additional allergic/immunologic complaints PMFSH Past Medical History Medical History Anxiety Bladder prolapse, female, acquired Exocrine pancreatic insufficiency Hypothyroidism (acquired) Major depression, recurrent, chronic Mixed hyperlipidemia Personal history of colonic polyps Vitamin D deficiency, unspecified Surgical History Surgical History History of esophageal surgery History of hysterectomy Family History Family History Other Asthma Carcinoma of colon Cerebrovascular
[2023-01-30 21:45] VITALS: PULSE 77
[2023-01-30 21:46] LABS: Basophils Absolute Auto 0.04 K/mm3 (0.00-0.10); Basophils Percent Auto 0.4 % (0.0-1.0); Eosinophils Absolute Auto 0.23 K/mm3 (0.02-0.50); Eosinophils Percent Auto 2.4 % (1.0-6.0); Hematocrit 38.6 % (35.0-42.0); Hemoglobin 12.5 g/dL (11.7-13.8); Immature Granulocyte Absolute 0.04 K/mm3 (0.00-0.00); Immature Granulocyte Percent A 0.4 % (0.0-0.0); Lymphocytes Absolute Auto 2.69 K/mm3 (1.10-4.50); Lymphocytes Percent Auto 28.2 % (18.0-42.0); Mean Corpuscular HGB Conc 32.4 g/dL (32.0-36.0); Mean Corpuscular Hemoglobin 29.1 pg (27.0-31.0); Mean Corpuscular Volume 89.8 fL (78.0-102.0); Mean Platelet Volume 9.7 fl (9.2-11.8); Monocytes Absolute Auto 0.53 K/mm3 (0.10-0.90); Monocytes Percent Auto 5.6 % (2.0-11.0); Platelet Count Result 195 K/mm3 (150-420); Red Cell Distribution Width 12.8 % (11.6-14.4); White Blood Count 9.5 K/mm3 (4.8-10.8)
[2023-01-30] MEDS: MAG HYDROX/ALUMINUM HYD/SIMETH 30 ML, PHENobarb/HYOSCY/ATROPINE/SCOP 32.4 MG, LIDOCAINE... PO (21:57)
[2023-01-30 22:06] LABS: Appearance Urine Clear (Clear); Bilirubin Urine Negative (Negative); Blood Urine 1+ (Negative); Color Urine Light Yellow (Yellow); Glucose Urine UA Negative (Negative); Ketones Urine Negative (Negative); Leukocyte Esterase Ur 1+ LEU/UL (Negative); Nitrate Urine Negative (Negative); Protein Urine Negative (Negative); Specific Grav Ur 1.015 (1.010-1.020); pH Urine 7.5 (5.0-8.0)
[2023-01-30 22:13] LABS: Prothrombin Time 10.8 Seconds (9.50-12.10)
[2023-01-30 22:23] VITALS: BP 155/74; PULSE 77; RESP 18; O2SAT 100
[2023-01-30 22:23] LABS: Add Urine Microscopic? YES
[2023-01-30 22:25] LABS: Bacteria Urine 2+ /hpf; Squamous Epithelial Cell Urine Moderate /hpf (Few)
[2023-01-30 22:33] LABS: Alanine Aminotransferase 66 U/L (14-59); Albumin Level 3.3 g/dL (3.4-5.0); Alkaline Phosphatase 82 U/L (46-116); Anion Gap 8 mmol/L (8-16); Aspartate Amino Transferase 100 U/L (15-37); Bilirubin,Total 0.6 mg/dL (0.00-1.00); Blood Urea Nitrogen 18 mg/dL (7-18); Calcium 8.7 mg/dL (8.5-10.1); Carbon Dioxide 29 mmol/L (21-32); Chloride 102 mmol/L (98-108); Estimated CRCL calculation 38 ml/min; Estimated Glomerular Filt Rate > 60; Glucose 116 mg/dL (70-99); Lipase 28 U/L (16-77); Magnesium 1.9 mg/dL (1.8-2.4); NT Pro B Type Natriuretic Pept 132 pg/mL (0-450); Osmolality Calculated 290 mOsm/kg (285-295); Potassium 3.9 mmol/L (3.5-5.1); Sodium 139 mmol/L (136-145); Total Protein 6.9 g/dL (6.4-8.2); Troponin I 20.2 ng/L (0.00-60.4)
[2023-01-30] MEDS: AMOXICILLIN/CLAVULANATE K 500-125 MG TAB 1 TABLET PO (22:49)
[2023-01-31 00:10] VITALS: BP 150/74; PULSE 78; RESP 18; O2SAT 100
--- NOTE | 2023-02-03 13:50 | PC.NURSE ---
ERP reviewed final culture report, asked RN to fax to PCP office for further evaluation.
== END 2023-01-31 00:15 | disposition home or self-care (01) ==
PROVIDERS: Emergency Provider Emergency Medicine; PCP Family Medicine
DX: K21.9 Gastro-esophageal reflux disease without esophagitis (principal); N30.01 Acute cystitis with hematuria; E03.9 Hypothyroidism, unspecified; E78.2 Mixed hyperlipidemia
CPT/HCPCS: 36415; 71045; 80053; 81001; 83690; 83735; 83880; 84484; 85025; 85610; 85730; 87077; 87086; 87088; 87186; 93005; 99284; A9270

== ENCOUNTER 2023-02-11 12:54 | Emergency (ER) | payer MEDICARE, SELFPAY ==
--- NOTE | ~2023-02-11 | XR_ITS ---
EXAMINATION: XR lumbar spine 2-3V DATE: 02/11/2023 14:30 INDICATION: Low back pain TECHNIQUE: Anteroposterior and lateral views of the lumbar spine, and cone-down lateral view of the l umbosacral junction were obtained. COMPARISON: CT, 07/25/2022 FINDINGS: Bone alignment is normal. There is no fracture. There is severe loss of intervertebral disc space height at L5-S1. The vertebral body heights are maintained. There is severe facet joint osteoa rthritis at L5-S1. Calcified atherosclerosis is noted. A large volume of colonic stool is present. Th ere are phleboliths of the left pelvis. IMPRESSION: 1. Severe lumbar spondylosis at L5-S1 without acute findings. Reviewed, dictated and finalized at location B.
[2023-02-11 12:54] VITALS: BP 146/98; PULSE 67; RESP 18; TEMP 36.6; O2SAT 96
[2023-02-11] MEDS: KETOROLAC 30 MG/ML VIAL (*BKC) IM (14:14)
--- NOTE | 2023-02-11 14:19 | PC.NURSE ---
pt taken to xray at this time
--- NOTE | 2023-02-11 14:30 | PC.NURSE ---
pt returned to room 16 at this time
[2023-02-11 16:48] LABS: Appearance Urine Cloudy (Clear); Bacteria Urine 1+ /hpf; Bilirubin Urine Negative (Negative); Blood Urine Negative (Negative); Color Urine Yellow (Yellow); Glucose Urine UA Negative (Negative); Ketones Urine Negative (Negative); Leukocyte Esterase Ur 2+ LEU/UL (Negative); Need Manual Microscopic Reviewed; Nitrate Urine Negative (Negative); Non Pathogenic Casts 0-2; Protein Urine Negative (Negative); Specific Grav Ur 1.013 (1.001-1.035); Squamous Epithelial Cell Urine Moderate /hpf (Few); Urobilinogen Urine 0.2 mg/dL (<2.0); WBC Urine 21-50 /hpf; pH Urine 8.5 (5.0-9.0)
[2023-02-11 16:50] LABS: Add Urine Microscopic? YES
--- NOTE | 2023-02-11 16:57 | ED.BACK ---
HPI - Back Pain/Injury General Chief Complaint: Back Pain/Injury Stated Complaint: sciatica pain Time Seen by Provider: 02/11/23 13:29 History of Present Illness HPI Narrative: Patient is an 87-year-old female who presents ER with reports of sciatica. Left side pain in the SI region moving down her left leg when she bends and walks. It began after she was seen in ER for UTI and was laying bent over in bed. She has been resting at home. No fevers or chills or sweats. No saddle anesthesia. Patient has had some occasional lightheadedness that is consistent with UTI for her. Patient family would like urine tested though she has no dysuria or urinary frequency. She was recently on a cephalosporin and the bacteria was resistant so she is switched to ciprofloxacin. Related Data Home Medications Medication Instructions Recorded Confirmed multivitamin,sw-[id number]-[id number] 1 tablet PO DAILY 04/12/20 01/30/23 (Complete Multivitamin tablet) Allergies Allergy/AdvReac Type Severity Reaction Status Date / Time aspirin Allergy Unknown GI-BLEED Verified 02/05/23 07:30 codeine Allergy Unknown Fatigued Verified 02/05/23 07:30 iodine Allergy Unknown CHEST Verified 02/05/23 07:30 PRESSURE latex Allergy Unknown ITYCY, RASH Verified 02/05/23 07:30 levofloxacin Allergy Unknown Joint Pain Verified 02/05/23 07:30 mold Allergy Unknown RESPITORY Verified 02/05/23 07:30 DISTRESS pollen extracts Allergy Unknown RESPITORY Verified 02/05/23 07:30 DISTRESS sulfamethoxazole AdvReac Intermediate Shakes Verified 02/05/23 07:30 [From Bactrim] trimethoprim [From Bactrim] AdvReac Intermediate Shakes Verified 02/05/23 07:30 Latex, Natural Rubber AdvReac Mild ITCHY, RASH Verified 02/05/23 07:30 Review of Systems Constitutional: Constitutional: Denies chills and Denies fever(s) Gastrointestinal: Gastrointestinal: Denies abdominal pain, Denies nausea and Denies vomiting Genitourinary: Genitourinary: Denies nocturia, Denies dysuria and Denies flank pain PMFSH Past Medical History Medical History Anxiety Bladder prolapse, female, acquired Exocrine pancreatic insufficiency Hypothyroidism (acquired) Major depression, recurrent, chronic Mixed hyperlipidemia Personal history of colonic polyps Vitamin D deficiency, unspecified Surgical History Surgical History History of esophageal surgery History of hysterectomy Family History Family History Other Asthma Carcinoma of colon Cerebrovascular accident Diabetes mellitus Family history of arthritis Family history of cardiovascular disease Social History Social History Smoking status: Never smoker Smoking end date: 05/25/69 Alcohol intake: former Substance use: never Substance use type: does not use Living arrangements: alone Occupation/Education: retired Spiritual care concerns: No Exam Narrative: GENERAL: Well-appearing, well-nourished, and in no acute distress. HEAD: Normocephalic, atraumatic. CHEST: Clear to auscultation. No respiratory distress. HEART: Regular rate and rhythm. Normal peripheral pulses. Back: No reproducible midline tenderness to the T/L-spine. There is a left SI tenderness with palpation. EXTREMITIES: Normal range of motion. No edema. SKIN: Warm, dry, no rash. NEURO: Alert and oriented x3. PSYCH: Normal mood and affect. Course Course Emergency Course: Discussed results with patient and daughter. Discussed treatment plan and they verbalized understanding Vital Signs Vital signs: Vital Signs Temperature 97.8 F 02/11/23 12:54 Pulse Rate 67 02/11/23 12:54 Respiratory Rate 18 02/11/23 12:54 Blood Pressure 146/98 H 02/11/23 12:54 Pulse Oximetry 96 02/11/23 12:54 Oxygen Delivery Room Air
[2023-02-11 17:20] VITALS: BP 138/95; RESP 16; O2SAT 97
== END 2023-02-11 17:21 | disposition home or self-care (01) ==
PROVIDERS: Emergency Provider Emergency Medicine; PCP Family Medicine
DX: M54.42 Lumbago with sciatica, left side (principal); N39.0 Urinary tract infection, site not specified; K86.81 Exocrine pancreatic insufficiency; E03.9 Hypothyroidism, unspecified; E78.2 Mixed hyperlipidemia; E55.9 Vitamin D deficiency, unspecified; Z86.010 Personal history of colon polyps; Z90.710 Acquired absence of both cervix and uterus; M47.816 Spondylosis without myelopathy or radiculopathy, lumbar region
CPT/HCPCS: 72100; 81001; 87077; 87086; 87088; 96372; 99283; J1885

== ENCOUNTER 2023-02-19 15:57 | Outpatient (NON) | payer MEDICARE, SELFPAY ==
[2023-02-19 16:06] LABS: Bilirubin Urine Negative (Negative); Blood Urine 1+ (Negative); Color Urine Light Yellow (Yellow); Glucose Urine UA Negative (Negative); Ketones Urine Negative (Negative); Leukocyte Esterase Ur 2+ LEU/UL (Negative); Nitrate Urine Negative (Negative); Protein Urine Negative (Negative); Urobilinogen Urine 0.2 mg/dL (0.2-1.0)
[2023-02-19 16:14] LABS: Add Urine Microscopic? YES; Appearance Urine Slightly Cloudy (Clear); Bacteria Urine 3+ /hpf; Squamous Epithelial Cell Urine Moderate /hpf (Few); WBC Urine 16-20 /hpf (0-3)
== END 2023-02-19 15:58 | disposition home or self-care (01) ==
LOC: CHSLAB 15:58
PROVIDERS: Visit Provider Nurse Practitioner Family
DX: N30.01 Acute cystitis with hematuria (principal); R82.90 Unspecified abnormal findings in urine
CPT/HCPCS: 81001; 87086

== ENCOUNTER 2023-03-05 08:33 | Outpatient (CLI) | payer MEDICARE, SELFPAY ==
--- NOTE | ~2023-03-05 | MR_ITS ---
EXAMINATION: MR lumbar spine wo con DATE: 03/05/2023 10:07 INDICATION: Low back pain. Sciatica, unspecified side. TECHNIQUE: Magnetic resonance imaging (MRI) of the lumbar spine was performed without intravenous con trast. Sequences included sagittal T2-weighted FSE, sagittal T2-weighted FS FSE, sagittal T1-weighted FSE, and axial T2-weighted FSE. COMPARISON: Lumbar spine radiographs 02/11/2023 FINDINGS: There is 4 degrees dextrocurvature of lumbar spine. Vertebral body heights are normal. Ther e is mildly decreased disc height at L3-L4 and L4-L5 and severely decreased disc height at L5-S1. The distal spinal cord signal intensity is normal. The conus medullaris is at T12-L1. The following disc levels are specifically discussed: L1-L2: The disc is bulging with superimposed central extrusion. There is mild bilateral facet joint o steoarthritis. There is no neural foraminal stenosis. There is mild central canal stenosis. L2-L3: The disc is bulging and has an annular fissure. There is mild bilateral facet joint osteoarthr itis. There is mild bilateral neural foraminal stenosis. There is mild central canal stenosis. L3-L4: The disc is bulging with superimposed left subarticular and foraminal zone extrusion with mass effect on left L4 nerve root in left lateral recess. There is mild bilateral facet joint osteoarthri tis. There is mild bilateral neural foraminal stenosis. There is mild central canal stenosis. There i s moderate stenosis of left lateral recess. L4-L5: The disc is bulging and has an annular fissure. There is mild bilateral facet joint osteoarthr itis. There is mild bilateral neural foraminal stenosis. There is mild central canal stenosis. There is moderate stenosis of left lateral recess where the disc abuts the left L5 nerve root. L5-S1: The disc is bulging. There is moderate bilateral facet joint osteoarthritis. There is mild isabelle ateral neural foraminal stenosis. There is mild central canal stenosis. IMPRESSION: 1. Severe lumbar spondylosis. Of note, an extrusion at L3-L4 exerts mass effect on the left L4 nerve root. A disc bulge at L4-L5 abuts the left L5 nerve root. Reviewed, dictated and finalized at location A.
== END 2023-03-05 08:34 | disposition home or self-care (01) ==
LOC: CHSIMG 08:37
PROVIDERS: PCP Family Medicine; Visit Provider Family Medicine
DX: M54.30 Sciatica, unspecified side (principal); M43.06 Spondylolysis, lumbar region
CPT/HCPCS: 72148

== ENCOUNTER 2023-03-18 15:09 | Outpatient (CLI) | payer MEDICARE, SELFPAY ==
[2023-03-18 15:18] LABS: Appearance Urine Clear (Clear); Bilirubin Urine Negative (Negative); Blood Urine Trace-Intact (Negative); Color Urine Light Yellow (Yellow); Glucose Urine UA Negative (Negative); Ketones Urine Negative (Negative); Leukocyte Esterase Ur 1+ (Negative); Nitrate Urine Negative (Negative); Protein Urine Trace (Negative); Urobilinogen Urine 0.2 mg/dL (0.2-1.0)
[2023-03-18 15:32] LABS: Add Urine Microscopic? YES; RBC Urine 0-2 /hpf (0-2); Renal Epithelial Cells Urine Few /hpf; Squamous Epithelial Cell Urine Few /hpf (Few)
[2023-03-18 15:33] LABS: Bacteria Urine 2+ /hpf
== END 2023-03-18 15:10 | disposition home or self-care (01) ==
LOC: CHSLAB 15:11
PROVIDERS: PCP Family Medicine; Visit Provider Family Medicine
DX: N30.01 Acute cystitis with hematuria (principal)
CPT/HCPCS: 81001; 87077; 87086; 87088; 87186

== ENCOUNTER 2023-05-22 15:17 | Outpatient (CLI) | payer MEDICARE, SELFPAY ==
[2023-05-22 15:34] LABS: Appearance Urine Cloudy (Clear); Bilirubin Urine Negative (Negative); Color Urine Light Yellow (Yellow); Glucose Urine UA Negative (Negative); Ketones Urine Negative (Negative); Leukocyte Esterase Ur Negative (Negative); Nitrate Urine Negative (Negative); Protein Urine Negative (Negative); Specific Grav Ur 1.015 (1.010-1.020); pH Urine 7.5 (5.0-8.0)
[2023-05-22 15:43] LABS: Add Urine Microscopic? YES; Blood Urine Trace-lysed (Negative); RBC Urine 0-2 /hpf (0-2); Squamous Epithelial Cell Urine Few /hpf (Few); WBC Urine None seen /hpf (0-3)
[2023-05-22 15:44] LABS: Amorphous Sediment Urine Moderate; Bacteria Urine 1+ /hpf
== END 2023-05-22 15:18 | disposition home or self-care (01) ==
LOC: CHSLAB 15:20
PROVIDERS: PCP Family Medicine; Visit Provider Nurse Practitioner Family
DX: N28.89 Other specified disorders of kidney and ureter (principal); R30.9 Painful micturition, unspecified
CPT/HCPCS: 81001; 87086; 87088

== ENCOUNTER 2023-05-29 12:09 | Outpatient (CLI) | payer MEDICARE, SELFPAY ==
--- NOTE | ~2023-05-29 | XR_ITS ---
XR chest 2V DATE: 05/29/2023 12:38 INDICATION: Abnormal weight loss. No chest complaints. TECHNIQUE: PA and lateral views COMPARISON: 01/30/2023 portable AP chest FINDINGS: Normal heart size. Thoracic and abdominal aortic and coronary artery calcification. No rené r or mediastinal enlargement. Bilateral hyperinflation. No pulmonary infiltrate or consolidation, pleural effusion or pulmonary vas cular congestion or pneumothorax. Postoperative change along the left leaf of the diaphragm. Diffuse osteopenia. IMPRESSION: Bilateral hyperinflation suggesting obstructive airways disease No active cardiac pulmonary disease Aortic atherosclerosis Postoperative repair of left diaphragm Osteopenia Reviewed, dictated and finalized at location B. ORATE PLANNER
--- NOTE | 2023-05-29 12:26 | ECG_ITS ---
Measurements Intervals [place] Rate: 70 P: 69 WV: 164 QRS: 72 QRSD: 81 T: 69 QT: 385 QTc: 415 Interpretive Statements SINUS RHYTHM DELAYED PRECORDIAL R/S TRANSITION BORDERLINE ECG COMPARED TO ECG 01/30/2023 21:30:32 NO SIGNIFICANT CHANGES Electronically Signed On 05-29-2023 13:51:02 DIRECTOR FUNDRAISING by Harley Vincent D.O.
[2023-05-29 12:36] LABS: Basophils Absolute Auto 0.03 K/mm3 (0.00-0.10); Basophils Percent Auto 0.4 % (0.0-1.0); Eosinophils Absolute Auto 0.19 K/mm3 (0.02-0.50); Eosinophils Percent Auto 2.5 % (1.0-6.0); Hematocrit 39.7 % (35.0-42.0); Hemoglobin 12.8 g/dL (11.7-13.8); Immature Granulocyte Absolute 0.03 K/mm3 (0.00-0.00); Immature Granulocyte Percent A 0.4 % (0.0-0.0); Lymphocytes Absolute Auto 1.76 K/mm3 (1.10-4.50); Lymphocytes Percent Auto 22.8 % (18.0-42.0); Mean Corpuscular HGB Conc 32.2 g/dL (32.0-36.0); Mean Corpuscular Hemoglobin 30.3 pg (27.0-31.0); Mean Corpuscular Volume 93.9 fL (78.0-102.0); Mean Platelet Volume 9.7 fl (9.2-11.8); Monocytes Absolute Auto 0.62 K/mm3 (0.10-0.90); Neutrophils Absolute Auto 5.1 K/mm3 (1.7-7.2); Neutrophils Percent Auto 65.9 % (50.0-70.0); Platelet Count Result 199 K/mm3 (150-420); Red Blood Count 4.23 M/mm3 (4.20-5.40); Red Cell Distribution Width 12.5 % (11.6-14.4); White Blood Count 7.7 K/mm3 (4.8-10.8)
[2023-05-29 13:09] LABS: Thyroid Stimulating Hormone Reflex 1.52 u/IU/mL (0.36-3.74)
[2023-05-29 13:12] LABS: Alanine Aminotransferase 35 U/L (14-59); Albumin Level 3.3 g/dL (3.4-5.0); Alkaline Phosphatase 82 U/L (46-116); Anion Gap 4 mmol/L (8-16); Aspartate Amino Transferase 18 U/L (15-37); Bilirubin,Total 0.4 mg/dL (0.00-1.00); Blood Urea Nitrogen 16 mg/dL (7-18); Calcium 9.3 mg/dL (8.5-10.1); Carbon Dioxide 34 mmol/L (21-32); Chloride 103 mmol/L (98-108); Cholesterol 151 mg/dL (0-200); Estimated Glomerular Filt Rate > 60; Ferritin 74 ng/mL (8-252); Glucose 73 mg/dL (70-99); HDL Direct 74 mg/dL (40-60); Iron 52 ug/dL (50-170); LDL Cholesterol Calculated 66 mg/dL (<130); Osmolality Calculated 292 mOsm/kg (285-295); Percent Iron Saturation 17 % (12-57); Potassium 3.9 mmol/L (3.5-5.1); Sodium 141 mmol/L (136-145); Total Protein 6.7 g/dL (6.4-8.2); Triglycerides 55 mg/dL (0-150)
[2023-05-29 13:13] LABS: CRP < 0.5 mg/dL (0.0-0.9)
== END 2023-05-29 12:10 | disposition home or self-care (01) ==
LOC: CHSLAB 12:13
PROVIDERS: PCP Family Medicine; Visit Provider Family Medicine
DX: R63.4 Abnormal weight loss (principal); D64.9 Anemia, unspecified; E55.9 Vitamin D deficiency, unspecified; E11.9 Type 2 diabetes mellitus without complications; E03.9 Hypothyroidism, unspecified; M35.3 Polymyalgia rheumatica; D50.9 Iron deficiency anemia, unspecified; R42 Dizziness and giddiness; R91.8 Other nonspecific abnormal finding of lung field; I70.0 Atherosclerosis of aorta; Z98.890 Other specified postprocedural states; M85.89 Other specified disorders of bone density and structure, multiple sites
CPT/HCPCS: 36415; 71046; 80053; 80061; 82728; 83540; 83550; 84443; 85025; 86140; 93005

== ENCOUNTER 2023-05-31 14:00 | Emergency (ER) | payer MEDICARE, SELFPAY ==
[2023-05-31] VITALS (9 sets, daily range): BP systolic 107–168; BP diastolic 84–105; PULSE 93; RESP 17; TEMP 37; O2SAT 96–100
--- NOTE | 2023-05-31 14:01 | ECG_ITS ---
Measurements Intervals [place] Rate: 84 P: 58 LA: 142 QRS: 38 QRSD: 82 T: 57 QT: 376 QTc: 444 Interpretive Statements SINUS RHYTHM BASELINE ARTIFACT- I, II, III, AVR, AVL, AVF, V1-V6 NORMAL ECG COMPARED TO ECG 05/29/2023 12:45:46 NO SIGNIFICANT CHANGES Electronically Signed On 05-31-2023 16:16:21 SENIOR MANAGING DIRECTOR by Harley Vincent D.O.
--- NOTE | 2023-05-31 14:05 | ED.NAVMDI ---
HPI - Nausea/Vomiting/Diarrhea General Chief complaint: Nausea/Vomiting/Diarrhea Stated complaint: nausea/vomiting Time Seen by Provider: 05/31/23 14:01 Source: patient Mode of arrival: ambulatory Limitations: no limitations History of Present Illness HPI Narrative: Patient is an 88-year-old female here for some nausea and vomiting. She had no other major complaints. She was here with the UTI a few months ago. She had blood work and a chest x-ray done in the past week with her primary doctor. I will review these studies. MD elicited complaint: nausea and vomiting Onset (ago): day(s) (1) Description of vomiting: food contents ( Dinner last night possibly was a culprit) Associated nausea: Yes Associated abdominal pain: No Location of pain: none Exacerbating factors: none Relieving factors: none Context: possible food poisoning Associated symptoms: nausea/vomiting Related Data Home Medications Medication Instructions Recorded Confirmed multivitamin,gm-[id number] 1 tablet PO DAILY 04/12/20 01/30/23 (Complete Multivitamin tablet) Allergies Allergy/AdvReac Type Severity Reaction Status Date / Time aspirin Allergy Unknown GI-BLEED Verified 05/31/23 14:06 codeine Allergy Unknown Fatigued Verified 05/31/23 14:06 iodine Allergy Unknown CHEST Verified 05/31/23 14:06 PRESSURE latex Allergy Unknown ITYCY, RASH Verified 05/31/23 14:06 levofloxacin Allergy Unknown Joint Pain Verified 05/31/23 14:06 mold Allergy Unknown RESPITORY Verified 05/31/23 14:06 DISTRESS pollen extracts Allergy Unknown RESPITORY Verified 05/31/23 14:06 DISTRESS sulfamethoxazole AdvReac Intermediate Shakes Verified 05/31/23 14:06 [From Bactrim] trimethoprim [From Bactrim] AdvReac Intermediate Shakes Verified 05/29/23 07:41 Latex, Natural Rubber AdvReac Mild ITCHY, RASH Verified 05/31/23 14:06 Review of Systems Review of Systems: All systems reviewed & are unremarkable except as noted in HPI and below Constitutional: Constitutional: Reports no additional constitutional complaints Eyes: Eyes: Reports no additional eye complaints ENT: Reports system reviewed and no additional complaints, except as documented Cardiovascular: Cardiovascular: Reports no additional cardiovascular complaints Respiratory: Respiratory: Reports no additional respiratory complaints Gastrointestinal: Gastrointestinal: Reports no additional gastrointestinal complaints Genitourinary: Genitourinary: Reports no additional female genitourinary complaints Musculoskeletal: Musculoskeletal: Reports no additional musculoskeletal complaints Integumentary/Breasts: Skin/Breast: Reports system reviewed and no additional complaints, except as docu Neurologic: Reports system reviewed and no additional complaints, except as documented Psychiatric: Psychiatric: Reports no additional psychiatric complaints Endocrine: Endocrine: Reports no additional endocrine complaints Hematologic/Lymphatic: Hematologic/Lymphatic: Reports no additional hematologic/lymphatic complaints Allergic/Immunologic: Allergic/Immunologic: Reports no additional allergic/immunologic complaints PMFSH Past Medical History Medical History Anxiety Bladder prolapse, female, acquired Exocrine pancreatic insufficiency Hypothyroidism (acquired) Major depression, recurrent, chronic Mixed hyperlipidemia Personal history of colonic polyps Vitamin D deficiency, unspecified Surgical History Surgical History History of esophageal surgery History of hysterectomy Family History Family History Other Asthma Carcinoma of colon Cerebrovascular accident Diabetes mellitus Family history of arthritis Family history of cardiovascular disease Social History Social History S
[2023-05-31 14:35] LABS: Basophils Absolute Auto 0.02 K/mm3 (0.00-0.10); Basophils Percent Auto 0.2 % (0.0-1.0); Eosinophils Absolute Auto 0.06 K/mm3 (0.02-0.50); Eosinophils Percent Auto 0.7 % (1.0-6.0); Hematocrit 40.3 % (35.0-42.0); Hemoglobin 13.4 g/dL (11.7-13.8); Immature Granulocyte Absolute 0.04 K/mm3 (0.00-0.00); Immature Granulocyte Percent A 0.5 % (0.0-0.0); Lymphocytes Absolute Auto 1.16 K/mm3 (1.10-4.50); Lymphocytes Percent Auto 14.2 % (18.0-42.0); Mean Corpuscular HGB Conc 33.3 g/dL (32.0-36.0); Mean Corpuscular Hemoglobin 30.3 pg (27.0-31.0); Mean Corpuscular Volume 91.2 fL (78.0-102.0); Mean Platelet Volume 9.5 fl (9.2-11.8); Monocytes Absolute Auto 0.54 K/mm3 (0.10-0.90); Monocytes Percent Auto 6.6 % (2.0-11.0); Neutrophils Absolute Auto 6.3 K/mm3 (1.7-7.2); Neutrophils Percent Auto 77.8 % (50.0-70.0); Platelet Count Result 207 K/mm3 (150-420); Red Blood Count 4.42 M/mm3 (4.20-5.40); Red Cell Distribution Width 12.2 % (11.6-14.4); White Blood Count 8.2 K/mm3 (4.8-10.8)
[2023-05-31 14:51] LABS: Influenza A QL RT-PCR Negative (Negative); Influenza B QL RT-PCR Negative (Negative); RSV RNA, RT-PCR Negative (Negative); SARS-CoV-2 RNA PCR Negative (Negative)
[2023-05-31 14:55] LABS: Lactic Acid Reflex 1.3 mmol/L (0.4-2.0)
[2023-05-31 14:57] LABS: Alanine Aminotransferase 33 U/L (14-59); Albumin Level 3.3 g/dL (3.4-5.0); Alkaline Phosphatase 88 U/L (46-116); Anion Gap 9 mmol/L (8-16); Aspartate Amino Transferase 17 U/L (15-37); Bilirubin,Total 0.5 mg/dL (0.00-1.00); Blood Urea Nitrogen 15 mg/dL (7-18); Calcium 9.6 mg/dL (8.5-10.1); Carbon Dioxide 28 mmol/L (21-32); Chloride 102 mmol/L (98-108); Estimated Glomerular Filt Rate > 60; Glucose 112 mg/dL (70-99); NT Pro B Type Natriuretic Pept 278 pg/mL (0-450); Osmolality Calculated 289 mOsm/kg (285-295); Potassium 3.6 mmol/L (3.5-5.1); Sodium 139 mmol/L (136-145); Total Protein 7.3 g/dL (6.4-8.2); Troponin I 8.8 ng/L (0.00-60.4)
[2023-05-31 15:09] LABS: Bilirubin Urine Negative (Negative); Blood Urine 1+ (Negative); Color Urine Light Yellow (Yellow); Glucose Urine UA Negative (Negative); Ketones Urine Negative (Negative); Leukocyte Esterase Ur Trace LEU/UL (Negative); Nitrate Urine Negative (Negative); Protein Urine Trace (Negative); Specific Grav Ur 1.015 (1.010-1.020)
[2023-05-31 15:19] LABS: Add Urine Microscopic? YES; Appearance Urine Cloudy (Clear); Squamous Epithelial Cell Urine Many /hpf (Few); WBC Urine None seen /hpf (0-3)
[2023-05-31 15:20] LABS: Amorphous Sediment Urine Heavy; Bacteria Urine 1+ /hpf
[2023-05-31] MEDS: NITROFURANTOIN MONOHYD MACROCR 100 MG CAP PO (15:41)
== END 2023-05-31 15:45 | disposition home or self-care (01) ==
PROVIDERS: Emergency Provider Emergency Medicine; PCP Family Medicine
DX: N39.0 Urinary tract infection, site not specified (principal); K52.9 Noninfective gastroenteritis and colitis, unspecified; E03.9 Hypothyroidism, unspecified; E78.2 Mixed hyperlipidemia; F17.210 Nicotine dependence, cigarettes, uncomplicated
CPT/HCPCS: 36415; 80053; 81001; 83605; 83880; 84484; 85025; 87637; 93005; 99284; A9270

== ENCOUNTER 2023-06-05 14:44 | Outpatient (CLI) | payer MEDICARE, SELFPAY ==
--- NOTE | ~2023-06-05 | MM_ITS ---
EXAMINATION: MM screening [facility] BI w mechelle HISTORY: Screening mammogram TECHNIQUE: Craniocaudal and mediolateral oblique 3-D tomosynthesis images were obtained and synthetic 2-D images were generated. CAD analysis was submitted and interpreted. COMPARISON: 03/05/2017, 06/15/2008, 04/22/2007 BREAST PARENCHYMAL COMPOSITION: There are scattered areas of fibroglandular density. FINDINGS: No suspicious mass, calcification, or architectural distortion are identified in either gorge ast to suggest malignancy. There has been no suspicious interval change. IMPRESSION: 1. No mammographic evidence of malignancy. 2. Recommend routine screening mammography while the patient remains in good health. BI-RADS Category 1: Negative Reviewed, dictated and finalized at location A. TER IMPRESSION: 1. No mammographic evidence of malignancy. 2. Recommend routine screening mammography while the patient remains in good he alth. BI-RADS Category 1: Negative
== END 2023-06-05 14:45 | disposition home or self-care (01) ==
LOC: CHSIMG 14:46
PROVIDERS: PCP Family Medicine; Visit Provider Family Medicine
DX: Z12.31 Encounter for screening mammogram for malignant neoplasm of breast (principal); R63.4 Abnormal weight loss
CPT/HCPCS: 77063; 77067

== ENCOUNTER 2023-06-11 08:50 | Outpatient (CLI) | payer MEDICARE, SELFPAY ==
--- NOTE | 2023-06-16 10:15 | P.PCNPFT_ITS ---
PFT Procedure Performed PFT Procedure Performed Spirometry with Pre/Post Bronchodilator Plethysmography (Lung Vol) Diffusing Cap (DLCO) Flow Vol Loop PFT Interpretation DOS: 06/11/2023 REQUESTING: Dr. Mike Jefferson REASON FOR TESTING: dyspnea PULMONARY FUNCTION TESTS Results are reliable and reproducible. Spirometry: Pre-bronchodilator FEV1 is 2.37 L, 145% predicted. Pre- bronchodilator FVC is 3.07 L, 145% predicted. FEV1/FVC ratio is 77%, normal. After bronchodilator there is a 2% increase in the FEV1 and no change in the FVC. These are not statistically significant changes. Lung volumes: Total lung capacity is 5.37 L, 126% predicted, normal. Residual volume is 2.30 L, 119% predicted, normal. RV /TLC is 43%, normal. Airway resistance 182%. Diffusion: DLCO is 15.1, 123% predicted. DLCO/VA is 3.02, 96% predicted. Flow volume loop: Normal. IMPRESSION: This study shows normal spirometry, lung volumes and diffusion. The elevation in values are supranormal, not pathologic. Lack of response to bronchodilator should not preclude use if clinically indicated. No prior studies for comparison. Charis Shaikh MD
== END 2023-06-11 08:51 | disposition home or self-care (01) ==
LOC: CHSCARD 08:51
PROVIDERS: PCP Family Medicine; Visit Provider Family Medicine
DX: R63.4 Abnormal weight loss (principal); R06.00 Dyspnea, unspecified
CPT/HCPCS: 94060; 94726; 94729

== ENCOUNTER 2023-09-16 11:45 | Outpatient (NON) | payer MEDICARE, SELFPAY | END 2023-09-16 11:46 | disposition home or self-care (01) | LOC: CHSLAB 11:46 | PROVIDERS: Visit Provider Family Medicine | DX: R39.9 Unspecified symptoms and signs involving the genitourinary system (principal) | CPT/HCPCS: 87086; 87088 ==

== ENCOUNTER 2023-09-21 09:01 | Outpatient (CLI) | payer MEDICARE, SELFPAY ==
--- NOTE | 2023-09-21 09:07 | ECHO_ITS ---
Patient Info Name: Gayatri Connor Age: 88 years : 1935 Gender: Female Ht: 62 in Wt: 98 lbs BSA: 1.39 m2 HR: 75 bpm BP: 168 / 80 mmHg Heart Rhythm: Sinus Rhythm Technical Quality: Fair Exam Date: 09/21/2023 9:36 AM Exam Location: Echo Lab Patient Status: Outpatient Admit Date: 09/21/2023 Staff Ordering Physician: Mike Jefferson DO A R Collections Rep: Valorie Tay RDCS Attending Provider: Mike Jefferson DO Referring Physician: Ronny CHAMBERS; Exam Type: CA echo doppler color flow Study Info Indications R01.1 - Cardiac murmur, unspecified Complete two-dimensional, color flow and Doppler transthoracic echocardiogram is performed. Summary 1. Complete two-dimensional, color flow and Doppler transthoracic echocardiogram is performed. 2. Left ventricular chamber dimension is normal. 3. Left ventricular systolic function is normal, estimated at 65-70%. 4. There is mild concentric increased left ventricular wall thickness. 5. The left ventricular diastolic function is grade I diastolic dysfunction. 6. E/e' 16 is elevated. 7. Moderate lipomatous hypertrophy of the atrial septum. 8. The aortic valve is not well visualized. Cannot determine number of aortic valve leaflets. 9. There is moderate aortic valve sclerosis. 10. The mitral valve has moderately calcified annulus. 11. There is trace mitral valve regurgitation. 12. No pulmonary hypertension, estimated pulmonary arterial systolic pressure is 30 mmHg. Left Ventricle E/e' 16 is elevated. Left ventricular chamber dimension is normal. Left ventricular systolic function is normal, estimated at 65-70%. There is mild concentric increased left ventricular wall thickness. The left ventricular diastolic function is grade I diastolic dysfunction. Right Ventricle Right ventricular systolic function is normal and with normal TAPSE 2.1 cm. Right ventricular chamber dimension is normal. Left Atria Left atrial chamber dimension is normal. Right Atria Right atrial chamber dimension is normal. Atrial Septum Moderate lipomatous hypertrophy of the atrial septum. Aortic Valve The aortic valve is not well visualized. Cannot determine number of aortic valve leaflets. There is moderate aortic valve sclerosis. There is no aortic valve stenosis. There is no aortic valve regurgitation. Pulmonic Valve There is no pulmonic regurgitation. Mitral Valve The mitral valve has moderately calcified annulus. There is no mitral valve stenosis. There is trace mitral valve regurgitation. Tricuspid Valve There is no tricuspid valve regurgitation. No pulmonary hypertension, estimated pulmonary arterial systolic pressure is 30 mmHg. Pericardium/Pleural There is no pericardial effusion. Inferior Vena Cava Normal inferior vena cava with >50% collapse upon inspiration consistent with normal right atrial pressure, 5 mmHg. Aorta The aortic root size at the sinus of Valsalva is normal. Left Ventricular Outflow Tract Name Value Normal LVOT 2D LVOT Diameter 1.9 cm LVOT Doppler LVOT Peak Velocity 122 cm/s LVOT Peak Gradient 6 mmHg LVOT Mean Gradient 3 mmHg LVOT VTI
== END 2023-09-21 09:02 | disposition home or self-care (01) ==
LOC: CHSIMG 09:02
PROVIDERS: PCP Family Medicine; Visit Provider Family Medicine
DX: I50.9 Heart failure, unspecified (principal); R01.1 Cardiac murmur, unspecified; I35.8 Other nonrheumatic aortic valve disorders
CPT/HCPCS: 93306

== ENCOUNTER 2023-11-11 20:44 | Outpatient (CLI) | payer MEDICARE, SELFPAY ==
[2023-11-11 20:59] LABS: Appearance Urine Cloudy (Clear); Bilirubin Urine Negative (Negative); Blood Urine Trace-intact (Negative); Color Urine Yellow (Yellow); Glucose Urine UA Negative (Negative); Ketones Urine Negative (Negative); Leukocyte Esterase Ur 1+ LEU/UL (Negative); Nitrate Urine Negative (Negative); Protein Urine Trace (Negative)
[2023-11-11 21:06] LABS: Add Urine Microscopic? YES; Amorphous Sediment Urine Moderate; Bacteria Urine 1+ /hpf; Mucus Urine Few /lpf; RBC Urine 0-2 /hpf (0-2); Squamous Epithelial Cell Urine Few /hpf (Few)
== END 2023-11-11 20:45 | disposition home or self-care (01) ==
LOC: CHSLAB 20:45
PROVIDERS: PCP Nurse Practitioner Family; Visit Provider Nurse Practitioner Family
DX: N39.0 Urinary tract infection, site not specified (principal); R82.90 Unspecified abnormal findings in urine
CPT/HCPCS: 81001; 87086

== ENCOUNTER 2024-03-02 07:59 | Outpatient (CLI) | payer MEDICARE, SELFPAY ==
--- NOTE | ~2024-03-02 | XR_ITS ---
EXAMINATION: XR barium swallow DATE: 03/02/2024 08:49 INDICATION: Dysphagia, unspecified. TECHNIQUE: The patient drank thick and thin barium. Fluoroscopy of the hypopharynx and esophagus was performed. Fluoroscopy exposure time was 0.7 minutes. The total number of images was 274. The dose-ar ea product was 0.387 Gy-cm^2. COMPARISON: CT abdomen and pelvis 07/25/2022 FINDINGS: There is no mass or stricture of the esophagus. There is decreased primary and secondary es ophageal peristalsis. Abnormal tertiary waves are noted. There is a small sliding hiatal hernia. The re are surgical clips around the proximal stomach. IMPRESSION: 1. Severe esophageal dysmotility. 2. Small sliding hiatal hernia. Reviewed, dictated and finalized at location A.
== END 2024-03-02 08:00 | disposition home or self-care (01) ==
PROVIDERS: PCP Family Medicine; Visit Provider Nurse Practitioner Family
DX: K22.4 Dyskinesia of esophagus (principal); R13.10 Dysphagia, unspecified
CPT/HCPCS: 74220

== ENCOUNTER 2024-05-04 01:27 | Day surgery (SDC) | payer MEDICARE, SELFPAY ==
[2024-04-18 14:05] VITALS: BMI 17.3
[2024-05-04 11:25] VITALS: BP 136/66; PULSE 76; RESP 16; TEMP 36.7; O2SAT 97
[2024-05-04] MEDS: LACTATED RINGERS 1,000 ML 150 ML IV CONT (11:31)
--- NOTE | 2024-05-04 12:53 | WPDANESEPPF ---
Anes - Initial Pre Proc Eval Procedure: Operation Date: 05/04/24 12:30 Proposed Procedures p Esophagogastroduodenoscopy - Fly Vazquez MD Date/Time: 05/04/24 12:53 Surgeon: Fly Vazquez MD Pre Op Diagnosis: Dysphagia Patient Data Age: 89 Gender: F Height: 1.57 m Weight: 41 kg Last Vital Signs Temp 36.7 C 05/04/24 11:25 Pulse 76 05/04/24 11:25 Resp 16 05/04/24 11:25 BP 136/66 05/04/24 11:25 Pulse Ox 97 05/04/24 11:25 O2 Del Method Room Air 05/04/24 11:25 Allergies Allergy/AdvReac Type Severity Reaction Status Date / Time aspirin Allergy Unknown GI-BLEED Verified 05/04/24 11:23 codeine Allergy Unknown Fatigued Verified 05/04/24 11:23 iodine Allergy Unknown CHEST Verified 05/04/24 11:23 PRESSURE latex Allergy Unknown ITYCY, RASH Verified 05/04/24 11:23 levofloxacin Allergy Unknown Joint Pain Verified 05/04/24 11:23 mold Allergy Unknown RESPITORY Verified 05/04/24 11:23 DISTRESS pollen extracts Allergy Unknown RESPITORY Verified 05/04/24 11:23 DISTRESS sulfamethoxazole (From AdvReac Intermediate Shakes Verified 05/04/24 11:23 Bactrim) trimethoprim (From Bactrim) AdvReac Intermediate Shakes Verified 05/04/24 11:23 Latex, Natural Rubber AdvReac Mild ITCHY, RASH Verified 05/04/24 11:23 Home Medications ?Medication ?Instructions ?Recorded ?Confirmed ?Type multivitamin,[id number] 1 tablet PO DAILY 04/12/20 05/04/24 History (Complete Multivitamin tablet) cholecalciferol (vitamin D3) 1,250 1,250 mcg PO 2XW #27 caps 04/08/23 05/04/24 Rx mcg (50,000 unit) capsule nitrofurantoin macrocrystal 100 mg 100 mg PO .qd #90 caps 09/03/23 05/04/24 Rx capsule ondansetron 4 mg disintegrating 4 mg PO Q8H PRN nausea and 09/03/23 05/04/24 Rx tablet vomiting #20 tabs paroxetine HCl 40 mg tablet 40 mg PO DAILY 90 days #90 tabs 10/05/23 05/04/24 Rx Synthroid 50 mcg tablet 50 mcg PO DAILY #90 tabs 12/14/23 05/04/24 Rx (levothyroxine) cranberry 500 mg capsule 500 mg PO DAILY 01/29/24 05/04/24 History omeprazole 40 mg capsule,delayed 40 mg PO DAILY #30 caps 02/23/24 05/04/24 Rx release rosuvastatin 20 mg tablet 20 mg PO DAILY #90 tabs 03/15/24 05/04/24 Rx Patient hx anesthesia problems: none Family hx anesthesia problems: none Results Review: All pre-operative results and documents have been reviewed as part of the pre-operative evaluation. [facility] Past Medical History Medical History Major depression, recurrent, chronic Anxiety Bladder prolapse, female, acquired Exocrine pancreatic insufficiency Personal history of colonic polyps Hypothyroidism (acquired) Mixed hyperlipidemia Vitamin D deficiency, unspecified Surgical History Surgical History History of esophageal surgery History of hysterectomy Family History Family History Other Asthma Carcinoma of colon Cerebrovascular accident Diabetes mellitus Family history of arthritis Family history of cardiovascular disease Social History Social History Smoking status: Never smoker Smoking end date: 05/25/69 Alcohol intake: former Substance use: never Substance use type: does not use Living arrangements: alone Occupation/Education: retired Spiritual care concerns: No Anes - Eval Final PreProcedure Day of Procedure 05/04/24 12:53 Patient weight: thin Heart: regular rate and rhythm Lungs: clear to auscultation Airway: Mallampati scale class III Neurological: alert and oriented Last oral intake: >/= 8 hours ASA classification: III Emergent: no Anesthetic plan: proceed Anesthesia type and monitoring: general GIVS and standard monitoring Results Review: All pre-operative results and documents have been reviewed as part of the pre-operative evaluation. Informed Consent: The patient's anesthetic plan and its attendant risks and benefits were discussed with the patient/family/POA. Questions were solicited and answers provided to the satisfaction of the patient/family/POA.
--- NOTE | 2024-05-04 13:00 | PM.HPGS ---
History of Present Illness History of Present Illness Consent: Risks, benefits, and alternatives have been discussed and questions answered. Patient agrees to proceed with procedure. Chief complaint: Dysphagia Narrative: Gayatri Connor is a 89 year old female here for egd, last one 2022 with esophagitis. Patient complains of intermittent swallowing difficulty related to which she describes as a thick mucus that gets stuck in her throat. This mucus can sometimes affect her swallowing inability for food to pass. Mucus sensation will even occur without eating. Review of Systems Review of Systems: All systems reviewed & are unremarkable except as noted in HPI and below PMFSH Past Medical History Medical History (Updated 05/04/24 @ 13:01 by Fly Vazquez MD) Phlegm in throat Major depression, recurrent, chronic Anxiety Bladder prolapse, female, acquired Exocrine pancreatic insufficiency Personal history of colonic polyps Hypothyroidism (acquired) Mixed hyperlipidemia Vitamin D deficiency, unspecified Surgical History Surgical History History of esophageal surgery History of hysterectomy Family History Family History Other Asthma Carcinoma of colon Cerebrovascular accident Diabetes mellitus Family history of arthritis Family history of cardiovascular disease Social History Social History Smoking status: Never smoker Smoking end date: 05/25/69 Alcohol intake: former Substance use: never Substance use type: does not use Living arrangements: alone Occupation/Education: retired Spiritual care concerns: No Meds Home Medications and Allergies Home Medications ?Medication ?Instructions ?Recorded ?Confirmed ?Type multivitamin,[id number]-[id number] 1 tablet PO DAILY 04/12/20 05/04/24 History (Complete Multivitamin tablet) cholecalciferol (vitamin D3) 1,250 1,250 mcg PO 2XW #27 caps 04/08/23 05/04/24 Rx mcg (50,000 unit) capsule nitrofurantoin macrocrystal 100 mg 100 mg PO .qd #90 caps 09/03/23 05/04/24 Rx capsule ondansetron 4 mg disintegrating 4 mg PO Q8H PRN nausea and 09/03/23 05/04/24 Rx tablet vomiting #20 tabs paroxetine HCl 40 mg tablet 40 mg PO DAILY 90 days #90 tabs 10/05/23 05/04/24 Rx Synthroid 50 mcg tablet 50 mcg PO DAILY #90 tabs 12/14/23 05/04/24 Rx (levothyroxine) cranberry 500 mg capsule 500 mg PO DAILY 01/29/24 05/04/24 History omeprazole 40 mg capsule,delayed 40 mg PO DAILY #30 caps 02/23/24 05/04/24 Rx release rosuvastatin 20 mg tablet 20 mg PO DAILY #90 tabs 03/15/24 05/04/24 Rx Allergies Allergy/AdvReac Type Severity Reaction Status Date / Time aspirin Allergy Unknown GI-BLEED Verified 05/04/24 11:23 codeine Allergy Unknown Fatigued Verified 05/04/24 11:23 iodine Allergy Unknown CHEST Verified 05/04/24 11:23 PRESSURE latex Allergy Unknown ITYCY, RASH Verified 05/04/24 11:23 levofloxacin Allergy Unknown Joint Pain Verified 05/04/24 11:23 mold Allergy Unknown RESPITORY Verified 05/04/24 11:23 DISTRESS pollen extracts Allergy Unknown RESPITORY Verified 05/04/24 11:23 DISTRESS sulfamethoxazole (From AdvReac Intermediate Shakes Verified 05/04/24 11:23 Bactrim) trimethoprim (From Bactrim) AdvReac Intermediate Shakes Verified 05/04/24 11:23 Latex, Natural Rubber AdvReac Mild ITCHY, RASH Verified 05/04/24 11:23 Vital Signs Vital Signs - 24 hr 05/04/24 11:25 Temperature 98.0 F Pulse Rate 76 Respiratory Rate 16 Blood Pressure 136/66 Pulse Oximetry 97 Oxygen Delivery Room Air Exam Const: General: comfortable and no acute distress HENMT: Face/Nose/Sinus: Normal nares present Eyes: General: appearance normal, both eyes and all related structures Neck: Neck: no JVD Resp: Auscultation: clear to auscultation bilaterally Cardio: Rate: regular rate Rhythm: regular rhythm GI: Inspection: non-distended GI Palp: Yes Soft to palpation Skin: General skin exam: normal color Neuro: General: gait normal Speech: normal speech Extrem: General: normal to inspection Psych: Mental Status: mental status grossly normal Assessment and Plan Assessment and plan (1) Dysphagia: Qualifiers: Dysphagia type: other dysphagia Qualified Code(s): R13.19 - Other dysphagia Code(s): R13.10 - Dysphagia, unspecified Status: Acute Assessment and Plan: egd to assess if no findings then will refer to ent (2) Phlegm in throat: Code(s): R09.89 - Other specified symptoms and signs involving the circulatory and respiratory systems Status: Acute
[2024-05-04 13:11] VITALS: BP 99/55; PULSE 61; RESP 13; O2SAT 99
[2024-05-04 13:21] VITALS: BP 107/66; PULSE 73; RESP 19; O2SAT 99
[2024-05-04 13:31] VITALS: BP 174/83; PULSE 68; RESP 13; O2SAT 100
[2024-05-04 13:42] VITALS: BP 164/78
== END 2024-05-04 13:51 | disposition home or self-care (01) ==
PROVIDERS: PCP Family Medicine; Referring Provider Nurse Practitioner Family; Visit Provider Internal Medicine Gastroenterology
PROC: 0DJ08ZZ Inspection of Upper Intestinal Tract, Via Natural or Artificial Opening Endoscopic (ICD-10-PCS; CPT 43235; principal; 2024-05-04 12:30)
DX: R09.89 Other specified symptoms and signs involving the circulatory and respiratory systems (principal); K29.50 Unspecified chronic gastritis without bleeding; K44.9 Diaphragmatic hernia without obstruction or gangrene; E03.9 Hypothyroidism, unspecified; E78.2 Mixed hyperlipidemia; E55.9 Vitamin D deficiency, unspecified; F41.9 Anxiety disorder, unspecified; F33.8 Other recurrent depressive disorders; Z98.890 Other specified postprocedural states; Z86.0100 Personal history of colon polyps, unspecified; Z87.448 Personal history of other diseases of urinary system; Z80.0 Family history of malignant neoplasm of digestive organs; Z82.49 Family history of ischemic heart disease and other diseases of the circulatory system
CPT/HCPCS: 43239; 88305; J2003; J2704; J7120

== ENCOUNTER 2024-06-02 12:30 | Outpatient (CLI) | payer MEDICARE, SELFPAY ==
--- NOTE | ~2024-06-02 | US_ITS ---
EXAMINATION: US carotid duplex BI DATE: 06/02/2024 13:00 INDICATION: Syncope. TECHNIQUE: Grayscale, color Doppler, and pulsed Doppler images of the cervical carotid arteries were obtained. The degree of vessel stenosis is placed in one of the following categories: normal, <50%, 5 0-69%, >=70% but less than near-occlusion, near-occlusion, or total occlusion. Note that percent sten osis relative to normal distal artery lumen diameter is indirectly measured from velocity measurement s as described by Lul, et al. Radiology 2003; 229:340-346. Notes: Normal: Peak systolic velocity <125 centimeters/sec and no plaque <50%. Peak systolic velocity <125 ( EDV <40; ICA/CCA PSV ratio <2.0; used these factors only a tandem lesions or low cardiac output or co ntralateral disease) 50-69 %: PSV 125-230 (EDV 40-100; ratio 2-4) >= 70% but less than near occlusion: PSV greater than 230 (EDV > 100; ratio> 4.0) Near Occlusion: PSV that is variable; markedly narrowed lumen Occlusion: Absent flow on color/spectral Doppler and no lumen on muñiz scale. COMPARISON: None. FINDINGS: RIGHT: The right common carotid artery (CCA) peak systolic velocity (PSV) is 94 cm/s. The right internal car otid artery (ICA) PSV is 100 cm/s. The right ICA end-diastolic velocity (EDV) is 25 cm/s. The right I CA/CCA PSV ratio is 1.1. The external carotid artery (ECA) PSV is 71 cm/s. There is antegrade flow in the right vertebral artery. LEFT: The left CCA PSV is 87 cm/s. The left ICA PSV is 93 cm/s. The left ICA EDV is 26 cm/s. The left ICA/C CA PSV ratio is 1.1. The ECA PSV is 59 cm/s. There is antegrade flow in the left vertebral artery. IMPRESSION: 1. Less than 50% stenosis in the right internal carotid artery by sonographic criteria. 2. Less than 50% stenosis in the left internal carotid artery by sonographic criteria. Reviewed, dictated and finalized at location B. TAL RECRUITER IMPRESSION: 1. Less than 50% stenosis in the right internal carotid artery by sonographic lisa clark. 2. Less than 50% stenosis in the left internal carotid artery by sonographic michael rodriguez.
[2024-06-02 13:14] LABS: Basophils Absolute Auto 0.02 K/mm3 (0.00-0.10); Basophils Percent Auto 0.4 % (0.0-1.0); Eosinophils Absolute Auto 0.14 K/mm3 (0.02-0.50); Eosinophils Percent Auto 2.6 % (1.0-6.0); Hematocrit 34.5 % (35.0-42.0); Hemoglobin 10.9 g/dL (11.7-13.8); Immature Granulocyte Absolute 0.02 K/mm3 (0.00-0.00); Immature Granulocyte Percent A 0.4 % (0.0-0.0); Lymphocytes Absolute Auto 1.47 K/mm3 (1.10-4.50); Lymphocytes Percent Auto 27.1 % (18.0-42.0); Mean Corpuscular HGB Conc 31.6 g/dL (32-36); Mean Corpuscular Hemoglobin 29.4 pg (27.0-31.0); Mean Platelet Volume 10.2 fl (9.2-11.8); Monocytes Percent Auto 7.4 % (2.0-11.0); Neutrophils Absolute Auto 3.37 K/mm3 (1.70-7.20); Neutrophils Percent Auto 62.1 % (50.0-70.0); Nucleated Red Blood Cells Absolute Auto 0.02 K/mm3 (0.00-0.00); Nucleated Red Blood Cells Perc 0.4 % (0-0.0); Platelet Count Result 148 K/mm3 (150-420); Red Blood Count 3.71 M/mm3 (4.20-5.40); Red Cell Distribution Width 12.3 % (11.6-14.4); White Blood Count 5.4 K/mm3 (4.8-10.8)
[2024-06-02 14:04] LABS: Alanine Aminotransferase 41 U/L (14-59); Albumin Level 3.5 g/dL (3.4-5.0); Alkaline Phosphatase 82 U/L (46-116); Anion Gap 9 mmol/L (4-12); Aspartate Amino Transferase 26 U/L (15-37); Bilirubin,Total 0.4 mg/dL (0.00-1.00); Blood Urea Nitrogen 18 mg/dL (7-18); Calcium 9.3 mg/dL (8.5-10.1); Carbon Dioxide 29 mmol/L (21-32); Chloride 103 mmol/L (98-108); Estimated Glomerular Filt Rate > 60; Glucose 104 mg/dL (70-99); Osmolality Calculated 293 mOsm/kg (285-295); Potassium 3.9 mmol/L (3.5-5.1); Sodium 141 mmol/L (136-145); Total Protein 6.3 g/dL (6.4-8.2)
== END 2024-06-02 12:31 | disposition home or self-care (01) ==
PROVIDERS: PCP Family Medicine; Visit Provider Family Medicine
DX: E03.9 Hypothyroidism, unspecified (principal); R55 Syncope and collapse; I65.23 Occlusion and stenosis of bilateral carotid arteries
CPT/HCPCS: 36415; 80053; 84443; 85025; 93880

== ENCOUNTER 2024-09-09 21:26 | Emergency (ER) | payer MEDICARE, SELFPAY ==
--- NOTE | ~2024-09-09 | XR_ITS ---
XR ankle RT min 3V Ordering provider: Maria E Chowdhury MD History: . FALL. NON SPECIFIC RIGHT ANKLE PAIN. . Comparison: None . FINDINGS: BONES: No acute fracture or dislocation. JOINT SPACES: Normal. SOFT TISSUES: Normal. IMPRESSION: No acute osseous abnormality of the right ankle. Reviewed, dictated and finalized at location A.
--- NOTE | ~2024-09-09 | CT_ITS ---
Procedure: CT wrist RT wo con Ordering provider: Maria E Chowdhury MD History: . FALL. RIGHT WRIST PAIN. R/O WRIST FRACTURE. . Comparison: None. Technique: Thin slice axial CT of the No IV contrast was given. Sagittal and coronal reformatted imag es were also obtained and reviewed. Radiation reduction technique utilized.The dose-length product wa s 323.68 mGy-cm. Findings: BONES: Interruption of the cortex in the distal right radius is noted suggestive of a fracture. Follo w-up advised. Small bony fragment is seen anterior to the scaphoid bone. JOINT SPACES: Narrowing of the radiocarpal joint. Widening of the distance between the scaphoid and l unate bones which may indicate ligamentous injury. Osteoarthritic changes of the scaphotrapezial and first carpometacarpal joint is noted. Chondrocalcinosis of the TFC is noted. SOFT TISSUES: Normal. IMPRESSION: Highly suggestive fracture in the distal right radius seen posteriorly. Follow-up advised. Polyarticular osteoarthritic changes. Slight widening of the distance between the scaphoid and lunate bones which may indicate ligamentous injury. Reviewed, dictated and finalized at location A. IMPRESSION: Highly suggestive fracture in the distal right radius seen posteriorly. Follow- up advised. Polyarticular osteoarthritic changes. Slight widening of the distance between the scaphoid and lunate bones which may indicate ligamentous injury.
--- NOTE | ~2024-09-09 | XR_ITS ---
XR wrist RT min 3V Ordering provider: Maria E Chowdhury MD History: . FALL. NON SPECIFIC RIGHT WRIST PAIN. . Comparison: None. FINDINGS: BONES: Bony protrusion is seen in the distal radius on the lateral view which may indicate a fracture . Follow-up advised.. No definite scaphoid fracture. Osteopenia of the bones. JOINT SPACES: Osteoarthritic changes of the scaphoid trapezium joint and first carpometacarpal joint. SOFT TISSUES: Normal. IMPRESSION: Bony protrusion is seen in the distal metaphysis of the radius in the lateral view. Possibility of a fracture cannot be excluded. A repeat exam in 10 days is advised. Reviewed, dictated and finalized at location A. IMPRESSION: Bony protrusion is seen in the distal metaphysis of the radius in the lateral v iew. Possibility of a fracture cannot be excluded. A repeat exam in 10 days is advised.
[2024-09-09 21:27] VITALS: BP 157/71; PULSE 73; RESP 18; TEMP 36.3; O2SAT 100
--- OUTSIDE RECORDS SUMMARY | 2024-09-09 21:29 | XMS_ITS | Clinical Summary ---
Author Organization [facility] Address [address] [place] [address] Care Team Providers Care Night Shift Name Role Phone Alex Shoemaker MD Primary Care Provider [phone] Source Comments [facility],non-[facility] Affiliates and Associated Physician Practices is amultiple site organization consisting of ambulatory clinics and hospital sitesin [place], [place], [place] and [place]. This disclosure is being madepursuant to the Care Everywhere program and may not contain all information available regarding this patient. 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 Gender Identity Not on file Sexual Orientation Not on file Plan of Treatment Health Maintenance Due Date Last Done Comments BONE DENSITY TESTING 1935 DTAP/TDAP/TD VACCINES (1 - Tdap) 1954 PNEUMOCOCCAL VACCINE 50+ (1 of 1 - PCV) 1985 ZOSTER VACCINE (1 of 2) 1985 Respiratory Syncytial Virus (RSV) Vaccine Pt: or over 60 yrs (1 - 1-dose 75+ series) 2010 COVID-19 VACCINE ( - 2023-2 5 season) 2024 DEPRESSION SCREENING 05/25/2024 MEDICARE AWV CALENDAR YEAR 2024 INFLUENZA VACCINE (Season Ended) 2025 HEPATITIS B VACCINE Aged Out No longe r eligible based on patient's age to complete this topic HIB VACCINE Aged Out No longer eligi ble based on patient's age to complete this topic HPV VACCINE Aged Out No longer eligi ble based on patient's age to complete this topic MENINGOCOCCAL (Group B) VACC INE SHARED DECISION-MAKING Aged Out No longer eligibl e based on patient's age to complete this topic MENINGOCOCCAL GROUPS A/C/Y/W VACCINE Aged Out No longer eligible b ased on patient's age to complete this topic Insurance MANAGED MEDICARE ADV UHC MANAGED MEDICARE ADV SELF PAY NO INSURANCE Member Subscriber Plan / Payer (Ef fective for All Dates) Name:Silvina aSnchez Member ID:Not on file Relation to Subscriber:Not on file Name:SILVINA SANCHEZ Subscriber ID:Not on file (Home) Address: [place] [address] Payer ID:Not on file Group ID:Not on file Type:Self Pay Address: [place], [place] UHC MANAGED MEDICARE ADV Care Teams Night Shift Relationship Specialty Start Date End Date Alex Shoemaker MD [address] [place] [address] PCP - General 09/26/22
--- OUTSIDE RECORDS SUMMARY | 2024-09-09 21:29 | XMS_ITS | Continuity of Care Document ---
Author Organization [facility] Address [address] [place] [address] Phone Care Team Providers Care Retail Cashier Name Role Phone Ajith James MD Unavailable Unavailable Procedures Procedure Date INJECTION ANESTHETIC AND/OR STERIOD, TRANS EPIDURAL LUMB OR SACRAL,, SINGLE LEVE SURGICAL TRAY INJECTION, GADOLINIUM BASED MAGNETIC RES ONANCE Injection, Triamcinolone Acetonide, 10mg Advance Directives Directive Yes / No Effective Date File Name No Information Encounters Encounter Description Practice Location Reason(s) For Visit Diagnoses Date Provider Providers Copied on Encounter [facility], [address], [place], [place], [id number], [place] tel:[phone] [facility] No Information Jacob Canseco. [address] , [place], [place], [id number], [place]. tel:[phone] Referring Provider: Zac French DO, [address], [place], [address]. tel:[phone] Family History Family Member Type Diagnosis Age At Onset No Information Payers Payer name Insurance type Covered libertarian ID Authoriza tion(s) [facility] MDCR COMPLETE HMO MB [id number] Social History Type Description Quantity Date Captured Comments Sex Female Smoking Status No Information Chief Complaint And Reason For Visit No Information Reason For Referral Reason For Referral No Information History Of Present Illness Encounter Date Complaint History Of Prese nt Illness No Information Functional Status Date Functional Assessmen t No Information Instructions Date Instruction Additional Infor mation No Information Assessments Type Assessment Date No Information Patient Care Teams Name Effective Dates (start - stop) Status Members No Information
--- OUTSIDE RECORDS SUMMARY | 2024-09-09 21:29 | XMS_ITS | Clinical Summary ---
Author Organization [facility] Address [address] [place] [address] Care Team Providers Care Breakfast Bar Attendant Name Role Phone Mike Jefferson DO Primary Care Provider [phone] Allergies Active Allergy Reactions Criticality Noted Date Comments Codeine Unknown 11/27/2018 MENTAL CHANGES Iodine Chest pressure 11/27/2018 Latex Rash Low 11/27/2018 Levofloxacin Anaphylaxis High 11/27/2018 Medications paroxetine 20 MG tablet Take 20 mg by mouth every morning. Active omeprazole 20 MG capsule Take 20 mg by mouth daily. Active ferrous sulfate, 65 mg elemental, 325 (65 FE) MG tablet Take 325 mg by mouth daily with breakfast. Active rosuvastatin (CRESTOR) 20 MG tablet Take 20 mg by mouth nightly at bedtime. Active levothyroxine (SYNTHROID) 50 MCG tablet Take 50 mcg by mouth every morning. Active ondansetron (ZOFRAN-ODT) 4 MG disintegrating tablet Take 1 tablet (4 mg total) by mouth every 8 (eight) hours as needed for Nausea. 20 tablet 2 Active Social History Tobacco Use Types Packs/Day Years Used Date Smoking Tobacco: Former Smokeless Tobacco: Never Alcohol Use Standard Drinks/Week Comments Yes 0 (1 standard drink = 0.6 oz pur e alcohol) RARELY Comments No Sex and Gender Information Value Date Recorded Sex Assigned at Not on file Legal Sex Female 7:05 PM CDT Gender Identity Not on file Sexual Orientation Not on file Last Filed Vital Signs Vital Sign Reading Time Taken Comments Blood Pressure 189/107 01/25/2024 10:00 PM CDT Pulse 75 01/25/2024 10:00 PM CDT Temperature 36.7 C (98 F) 01/25/2024 10:00 PM CDT Respiratory Rate 18 01/25/2024 10:00 PM CDT Oxygen Saturation 98% 01/25/2024 10:00 PM CDT Inhaled Oxygen Concentration - - Weight 44 kg (97 lb) 01/25/2024 5:45 PM CDT Height 157.5 cm (5' 2 ) 01/25/2024 5:45 PM CDT Body Mass Index 17.74 01/25/2024 5:45 PM CDT Plan of Treatment Health Maintenance Due Date Last Done Comments DTaP, Tdap and Td Vaccines ( 1 - Tdap) 1954 Annual Medicare Wellness Visit 2000 RSV Immunization or 60+ Years (1 - 1-dose 75+ series) 2010 COVID-19 Vaccine (2023-2 5 season) 2024 Pneumococcal Vaccine: 50+ Years Completed 10/27/2018, 05/08/2015, 11/29/2009 Zoster Vaccines Completed 06/14/2019, 04/12/2019, 02/04/2012 Meningococcal B Vaccine Aged Out No l onger eligible based on patient's age to complete this topic Meningococcal Vaccine Aged Out No matt micki eligible based on patient's age to complete this topic RSV Immunizations Under 20 Months Aged Out No longer eligible b ased on patient's age to complete this topic Insurance [facility] Care Teams Breakfast Bar Attendant Relationship Specialty Start Date End Date Mike Jefferson DO [address] [place] [address] PCP - General FAMILY PRACTICE 04/08/22
--- OUTSIDE RECORDS SUMMARY | 2024-09-09 21:29 | XMS_ITS | Referral Summary ---
Author Organization [facility] [place] Address [address] [place] [address] Care Team Providers Care Glass Vial Filler Name Role Phone Alex Shoemaker MD Primary Care Provider [phone] Alex Shoemaker MD Unavailable [phone] Allergies Active Allergy Reactions Criticality Noted Date Comments Adhesive Itching Low Codeine Other (See comments),Unknown Low 017 Reaction: Other Iodine Unknown,Other (See comments) Low 017 Reaction: Other Latex Itching,Unknown Low 02/19/2017 Levofloxacin Unknown,Other (See comments) Low 02/19 Reaction: Other Medications FLUAD [id number], 65 YR UP,,PF, 45 mcg (15 mcg x 3)/0.5 mL syringe ADM 0.5ML IM UTD 0 8 Active multivitamin tabletIndications: Vitamin Deficiency Prevention Active PARoxetine (PAXIL) 40 mg tablet TK 1 T PO QD 1 8 Active ezetimibe-simvasta tin (VYTORIN 10-40) 10-40 mg per tablet Active omeprazole (PriLOSEC) 20 mg capsule 9 Active amoxicillin-clavul anate (AUGMENTIN) 500-125 mg per tablet Take 1 tablet by mouth every 12 (twelve) hours for 7 days 3 Active cephalexin (KEFLEX) 500 mg capsule TAKE 1 CAPSULE BY MOUTH EVERY 8 HOURS FOR 10 DAYS 3 Active cholecalciferol (VITAMIN D-3) 50,000 unit capsule TAKE 1 CAPSULE BY MOUTH TWICE A WEEK 3 Active ciprofloxacin (CIPRO) 250 mg tablet Take 1 tablet (250 mg total) by mouth every 12 (twelve) hours 3 Active Synthroid 50 mcg tablet Take 1 tablet (50 mcg total) by mouth daily 3 Active Zenpep 25,000-79,000- 105,000 unit per capsule Take 2 capsules by mouth 3 (three) times a day 3 Active meclizine (ANTIVERT) 25 mg tablet TAKE 1 TABLET BY MOUTH THREE TIMES DAILY NEEDED FOR DIZZINESS 3 Active nitrofurantoin (MACRODANTIN) 100 mg capsule TAKE 1 CAPSULE BY MOUTH EVERY 12 HOURS WITH FOOD 3 Active nitrofurantoin monohydrate (MACROBID) 100 mg capsule TAKE 1 CAPSULE BY MOUTH EVERY 12 HOURS WITH FOOD FOR 7 DAYS 3 Active ondansetron ODT (ZOFRAN-ODT) 4 mg disintegrating tablet DISSOLVE 1 TABLET ON THE TONGUE EVERY 8 HOURS NEEDED FOR NAUSEA OR VOMITING 3 Active rosuvastatin (CRESTOR) 20 mg tablet Take 1 tablet (20 mg total) by mouth daily 3 Active Active Problems Problem Noted Date Diagnosed Date Lung mass 04/09/2017 Hiatal hernia 02/17/2017 Social History Tobacco Use Types Packs/Day Years Used Date Smoking Tobacco: Former Smokeless Tobacco: Never Comments Unknown Sex and Gender Information Value Date Recorded Sex Assigned at Not on file 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 Gender Identity Not on file Sexual Orientation Not on file Last Filed Vital Signs Vital Sign Reading Time Taken Comments Blood Pressure 126/58 02/11/2023 11:57 AM CDT Pulse 71 02/11/2023 11:57 AM CDT Temperature 37 C (98.6 F) 02/11/2023 11:57 AM CDT Respiratory Rate 20 02/11/2023 11:5 7 AM CDT Oxygen Saturation 99% 02/11/2023 11: 57 AM CDT Inhaled Oxygen Concentration - - Weight 60.2 kg (132 lb 12.8 oz) 019 12:38 PM LAUNDRY EQUIPMENT OPERATOR Height 157.5 cm (5' 2 ) 06/17/2018 12:3 8 PM LAUNDRY EQUIPMENT OPERATOR Body Mass Index 24.29 06/17/2018 12:38 PM LAUNDRY EQUIPMENT OPERATOR Plan of Treatment Not on file Insurance [facility] MDCR HMO REF Member Subscriber Plan / Payer (Ef fective 2018-Present) Name:Gayatri Connor Relation to Subscriber:Self Name:Gayatri Connor Payer ID:[id number] (NAIC) Type:[facility] MEDICARE Address: [id number] [facility] MEDICARE ADVANTAGE Care Teams Glass Vial Filler Relationship Specialty Start Date End Date Alex Shoemaker MD [address] [facility] [address] [facility] [place], [place] [id number] PCP - General 02/20/17 Alex Shoemaker MD [address] [facility] [address] [facility] [address] [place] [address] Referring Physician Internal Medicine 06/15/18
--- OUTSIDE RECORDS SUMMARY | 2024-09-09 21:29 | XMS_ITS | Clinical Summary ---
Author Organization [facility] Main [place] Address [address] [place] [address] Care Team Providers Care Stile Ripsaw Operator Name Role Phone Alex Shoemaker MD Primary Care Provider [phone] Alex Shoemaker MD Unavailable [phone] Allergies Active Allergy Reactions Criticality Noted Date Comments Adhesive Itching Low Codeine Other (See comments),Unknown Low 017 Reaction: Other Iodine Unknown,Other (See comments) Low 017 Reaction: Other Latex Itching,Unknown Low 02/19/2017 Levofloxacin Unknown,Other (See comments) Low 02/19 Reaction: Other Medications FLUAD 0911-0442, 65 YR UP,,PF, 45 mcg (15 mcg [...] Date Lung mass 04/09/2017 Hiatal hernia 02/17/2017 Surgical History Surgery Date Site/Laterality Comments HYSTERECTOMY Total Hysterectomy - (Added by TW Conv) Medical History Medical History Date Comments Personal history of other en docrine, nutritional and metabolic disease History of hyperlipi demia - (Added by TW Conv) Personal history of other sp ecified conditions History of ulceration - (Add ed by TW Conv) Family History Medical History Relation Name Comments Aneurysm Father Aneurysm - (Add ed by TW Conv) Heart disease Mother Family history of cardiac disorder - (Added by TW Conv) Colon cancer Sister Family history of colon cancer - (Added by TW Conv) Relation Name Status Comments Father Mother Sister Social History Tobacco Use Types Packs/Day Years Used Date Smoking Tobacco: Former Smokeless Tobacco: Never Comments Unknown Sex and Gender Information Value Date Recorded Sex Assigned at Not on file Legal Sex Female 1:50 AM MANAGER CLINICAL SERVICES Gender Identity Not on file Sexual Orientation Not on file Obstetrics History Last Filed Vital Signs Vital Sign Reading Time Taken Comments Blood Pressure 126/58 02/11/2023 11:57 AM CDT Pulse 71 02/11/2023 11:57 AM CDT Temperature 37 C (98.6 F) 02/11/2023 11:57 AM CDT Respiratory Rate 20 02/11/2023 11:5 7 AM CDT Oxygen Saturation 99% 02/11/2023 11: 57 AM CDT Inhaled Oxygen Concentration - - Weight 60.2 kg (132 lb 12.8 oz) 019 12:38 PM MANAGER CLINICAL SERVICES Height 157.5 cm (5' 2 ) 06/17/2018 12:3 8 PM MANAGER CLINICAL SERVICES Body Mass Index 24.29 06/17/2018 12:38 PM MANAGER CLINICAL SERVICES Plan of Treatment Health Maintenance Due Date Last Done Comments Depression Screening 1935 Fall Risk Assessment 1935 Hepatitis B Screening 1953 Well Visit 65+ 2000 Influenza Vaccine (Season Ended) 2025 03/07/2021, 03/13/2020, 02/17/2019, Additional history exists DTaP/Tdap/Td Vaccine (2 - Td or Tdap) 10/27/2028 10/27/2018 Pneumococcal vaccine 65+ Completed 019, 05/08/2015, 11/29/2009 Zoster Vaccine Completed 06/14/2019, 03/25, 02/04/2012 Insurance [facility] RE[facility] Address: [address] [address] [place] [address] [facility] MEDICARE ADVANTAGE [facility] MEDIC[facility] Address: [address] [address] [place] [address] Care Teams Stile Ripsaw Operator Relationship Specialty Start Date End Date Alex Sohemaker MD [address] [place] [address] PCP - General 02/20/17 Alex Shoemaker MD [address] [place] [address] Referring Physician Internal Medicine 06/15/18
--- NOTE | 2024-09-09 21:40 | ED.GENADULT ---
HPI - General Adult General Chief complaint: Extremity Injury, Lower Stated complaint: wrist and ankle pain Time Seen by Provider: 09/09/24 21:40 Source: patient Mode of arrival: ambulatory Limitations: no limitations History of Present Illness HPI narrative: Patient came from home by private car, because of a fall. Patient got out of the recliner quite fast, lost her balance and fell forward complaining of right ankle and right wrist pain. She denies head injury or any other injuries. No loss of consciousness Related Data Home Medications ?Medication ?Instructions ?Recorded ?Confirmed ?Last Taken ?Type multivitamin,in-nchr-rgruzapz 1 tablet PO DAILY 04/12/20 05/04/24 05/02/24 History (Complete Multivitamin tablet) cranberry 500 mg capsule 500 mg PO DAILY 01/29/24 05/04/24 05/02/24 History Allergies Allergy/AdvReac Type Severity Reaction Status Date / Time aspirin Allergy Unknown GI-BLEED Verified 09/01/24 14:12 codeine Allergy Unknown Fatigued Verified 09/01/24 14:12 iodine Allergy Unknown CHEST Verified 09/01/24 14:12 PRESSURE levofloxacin Allergy Unknown Joint Pain Verified 09/01/24 14:12 mold Allergy Unknown RESPITORY Verified 09/01/24 14:12 DISTRESS pollen extracts Allergy Unknown RESPITORY Verified 09/01/24 14:12 DISTRESS sulfamethoxazole (From AdvReac Intermediate Shakes Verified 09/01/24 14:12 Bactrim) trimethoprim (From Bactrim) AdvReac Intermediate Shakes Verified 09/01/24 14:12 Latex, Natural Rubber AdvReac Mild ITCHY, RASH Verified 09/01/24 14:12 Review of Systems Review of Systems: All systems reviewed & are unremarkable except as noted in HPI and below PMFSH Past Medical History Medical History Chronic rhinitis Impacted cerumen of right ear Allergic rhinitis Vasomotor rhinitis Phlegm in throat Major depression, recurrent, chronic Anxiety Bladder prolapse, female, acquired Exocrine pancreatic insufficiency Personal history of colonic polyps Hypothyroidism (acquired) Mixed hyperlipidemia Vitamin D deficiency, unspecified Surgical History Surgical History History of esophageal surgery History of hysterectomy Family History Family History Other Asthma Carcinoma of colon Cerebrovascular accident Diabetes mellitus Family history of arthritis Family history of cardiovascular disease Social History Social History Social History: Caffeine- coffee/tea Smoking status: Never smoker Smoking end date: 05/25/69 Alcohol intake: former Substance use: never Substance use type: does not use Do You Feel Safe in your Home?: Yes Lack of Transportation: No Lack of Food: Never True Current Housing: I Have Housing Concerned About Future Housing: No Difficulty Paying Gas/Electric Bills: No Difficulty Paying for Meds: No Currently Unemployed: No Education: High School Diploma/GED Difficulty w/ Childcare or Family Care: No Living arrangements: alone Occupation/Education: retired Spiritual care concerns: No Exam Narrative: General appearance: Well-developed, well-nourished Skin: Normal color Head: Normocephalic, nontraumatic Eyes: Clear conjunctiva ENT: Oropharynx normal, ears normal, nose normal Neck: Supple, nontender Chest and respiratory: Airway patent, no respiratory distress, no accessory muscle use Heart: Regular rate/rhythm Abdomen: Soft, nontender, no organomegaly, quiet bowel sounds Vascular: Normal peripheral pulses, normal capillary refill. Musculoskeletal: slight diffuse tenderness of the right wrist, no deformity, slight limited range of motion. Slight tenderness right ankle laterally, no deformity, slight limited range of motion Neurologic: Alert and oriented ?3, FITNESS COORDINATOR is normal as tested, no gross motor deficit Course Vital Signs Vital signs: Vital Signs Temperature 36.3 C L 09/09/24 21: Pulse Rate 73 09/09/24 21:27 Respiratory Rate 18 09/09/24 21:27 Blood Pressure 157/71 H 09/09/24 21:27 Pulse Oximetry 100 09/09/24 21:27 Oxygen Delivery Room Air 09/09/24 21:27 Temperature 36.3 C L 09/09/24 21: Pulse Rate 73 09/09/24 21:27 Respiratory Rate 18 09/09/24 21:27 Blood Pressure 157/71 H 09/09/24 21:27 Pulse Oximetry 100 09/09/24 21:27 Oxygen Delivery Room Air 09/09/24 21:27 Medical Decision Making Vital Signs Vital Signs: Vital Signs Temperature 36.3 C L 09/09/24 21:27 Pulse Rate 73 09/09/24 21:27 Respiratory Rate 18 09/09/24 21:27 Blood Pressure 157/71 H 09/09/24 21:27 Pulse Oximetry 100 09/09/24 21:27 Oxygen Delivery Room Air 09/09/24 21:27 Temperature 36.3 C L 09/09/24 21:27 Pulse Rate 73 09/09/24 21:27 Respiratory Rate 18 09/09/24 21:27 Blood Pressure 157/71 H 09/09/24 21:27 Pulse Oximetry 100 09/09/24 21:27 Oxygen Delivery Room Air 09/09/24 21:27 Imaging Data Radiologist's impression: Impressions Wrist X-Ray 09/09/24 22:20 IMPRESSION: Bony protrusion is seen in the distal metaphysis of the radius in the lateral view. Possibility of a fracture cannot be excluded. A repeat exam in 10 days is advised. Ankle X-Ray 09/09/24 22:28 IMPRESSION: No acute osseous abnormality of the right ankle. Critical Care Time Critical Care Time Critical Care Time: No Discharge Plan Discharge Clinical Impression: Right ankle sprain, Fracture of right wrist Patient Disposition: Home Condition: Stable Instructions: Ankle Sprain (DC), Wrist Fracture in Adults (ED), Urinary Tract Infection in Women (DC), Splint Care (ED), Ankle Stirrup Splint (ED) Additional Instructions: Return if symptoms are worsening , call orthopedic for appointment, take Tylenol as as needed for aches and pain, continue home medications. Patient Language: Estonian Prescriptions: New nitrofurantoin monohyd/m-cryst [Macrobid] 100 mg capsule 100 mg PO Q12H 5 Days Qty: 10 0RF Rx Instructions: must administer with a meal/food No Action Complete Multivitamin Tablet 1 tablet PO DAILY azelastine 137 mcg (0.1 %) spray,non-aerosol 1 spray intranasal Q12H 60 Days Qty: 30 0RF Rx Instructions: administer into each nostril ondansetron 4 mg tablet,disintegrating 4 mg PO Q8H PRN (Reason: nausea and vomiting) Qty: 20 0RF cranberry 500 mg capsule 500 mg PO DAILY Rx Instructions: administer with meals rosuvastatin 20 mg tablet 20 mg PO DAILY Qty: 90 2RF cholecalciferol (vitamin D3) 1,250 mcg (50,000 unit) capsule 1,250 mcg PO 2XW Qty: 27 3RF Patient Comments: TAKES ON THURSDAY & THURSDAY midodrine 5 mg tablet 5 mg PO TID Qty: 90 0RF Rx Instructions: do not give last dose of day after 6PM or within 4 hrs of bedtime levothyroxine [Synthroid] 50 mcg tablet 50 mcg PO DAILY Qty: 90 1RF paroxetine HCl 40 mg tablet 40 mg PO DAILY 90 Days Qty: 90 3RF omeprazole 40 mg capsule,delayed release(DR/EC) See Rx Instructions .ROUTE .COMPLEX Qty: 30 3RF Dose Instruction: TAKE 1 CAPSULE BY MOUTH DAILY Rx Instructions: TAKE 1 CAPSULE BY MOUTH DAILY Follow-up/Referrals: Mike Jefferson DO [Primary Care Provider] - Edin Qiu MD [Physician] - 09/12/24
--- OUTSIDE RECORDS SUMMARY | 2024-09-09 22:02 | XMS_ITS | Clinical Summary ---
Author Organization [facility] Address [address] [place] [address] Care Team Providers Care Seat Covers Trimmer Name Role Phone Alex Shoemaker MD Primary Care Provider [phone] Source Comments [facility],non-[facility] Affiliates and Associated Physician Practices is amultiple site organization consisting of ambulatory clinics and hospital sitesin [place], [place], [place] and [place]. This disclosure is being madepursuant to the Care Everywhere program and may not contain all information available regarding this patient. Last updated 18.[facility] [employer] Social History Tobacco Use Types Packs/Day Years Used Date Smoking Tobacco: Never Assessed Comments Unknown Sex and Gender Information Value Date Recorded Sex Assigned at Not on file Legal Sex Female 10:17 AM DEVICE REPAIR TECHNICIAN Gender Identity Not on file Sexual Orientation [...] Payer (Ef fective for All Dates) Name:Silvina Sanchez Member ID:Not on file Relation to Subscriber:Not on file Name:SILVINA SANCHEZ Subscriber ID:Not on file (Home) Address: [place] [address] Payer ID:Not on file Group ID:Not on file Type:Self Pay Address: [place], [place] UHC MANAGED MEDICARE ADV Care Teams Seat Covers Trimmer Relationship Specialty Start Date End Date Alex Shoemaker MD [address] [place] [address] PCP - General 09/26/22
--- OUTSIDE RECORDS SUMMARY | 2024-09-09 22:02 | XMS_ITS | Clinical Summary ---
Author Organization [facility] Main [place] Address [address] [place] [address] Care Team Providers Care Carpet Sewing Machine Operator Name Role Phone Alex Shoemaker MD Primary Care Provider [phone] Alex Shoemaker MD Unavailable [phone] Allergies Active Allergy Reactions Criticality Noted Date Comments Adhesive Itching Low Codeine Other (See comments),Unknown Low 017 Reaction: Other Iodine Unknown,Other (See comments) Low 017 Reaction: Other Latex Itching,Unknown Low 02/19/2017 Levofloxacin Unknown,Other (See comments) Low 02/19 Reaction: Other Medications FLUAD 1035-1077, 65 YR UP,,PF, 45 mcg (15 mcg [...] on file Legal Sex Female 1:50 AM AUTO GARAGE ATTENDANT Gender Identity Not on file Sexual Orientation [...] (132 lb 12.8 oz) 019 12:38 PM AUTO GARAGE ATTENDANT Height 157.5 cm (5' 2 ) 06/17/2018 12:3 8 PM AUTO GARAGE ATTENDANT Body Mass Index 24.29 06/17/2018 12:38 PM AUTO GARAGE ATTENDANT Plan of Treatment Health Maintenance Due Date Last Done Comments Depression Screening 1935 Fall Risk Assessment 1935 Hepatitis B Screening 1953 Well Visit 65+ 2000 Influenza Vaccine (Season Ended) 2025 03/07/2021, 03/13/2020, 02/17/2019, Additional history exists DTaP/Tdap/Td Vaccine (2 - Td or Tdap) 10/27/2028 10/27/2018 Pneumococcal vaccine 65+ Completed 019, 05/08/2015, 11/29/2009 Zoster Vaccine Completed 06/14/2019, 03/25, 02/04/2012 [facility] Address: [address] [address] [place] [address] [facility] MEDICARE ADVANTAGE [facility] Address: [address] [address] [place] [address] Care Teams Carpet Sewing Machine Operator Relationship Specialty Start Date End Date Alex Shoemaker MD [address] [place] [address] PCP - General 02/20/17 Alex Shoemaker MD [address] [place] [address] Referring Physician Internal Medicine 06/15/18
--- OUTSIDE RECORDS SUMMARY | 2024-09-09 22:02 | XMS_ITS | Clinical Summary ---
Author Organization [facility] Address [address] [place] [address] Care Team Providers Care Glass Embosser Name Role Phone Mike Jefferson DO Primary Care Provider [phone] Allergies Active Allergy Reactions Criticality Noted Date [...] patient's age to complete this topic Insurance [facility] Care Teams Glass Embosser Relationship Specialty Start Date End Date Mike Jefferson DO [address] [place] [address] PCP - General FAMILY PRACTICE 04/08/22
--- OUTSIDE RECORDS SUMMARY | 2024-09-09 22:02 | XMS_ITS | Continuity of Care Document ---
Author Organization [facility] Address [address] [place] [address] Phone Care Team Providers Care Oxygen Therapy Teacher Name Role Phone Ajith James MD Unavailable Unavailable Procedures Procedure Date INJECTION ANESTHETIC AND/OR STERIOD, TRANS EPIDURAL LUMB OR SACRAL,, SINGLE LEVE SURGICAL TRAY INJECTION, GADOLINIUM BASED MAGNETIC RES ONANCE Injection, Triamcinolone Acetonide, 10mg Advance Directives Directive Yes / No Effective Date File Name No Information Encounters Encounter Description Practice Location Reason(s) For Visit Diagnoses Date Provider Providers Copied on Encounter [facility], [address], [place], [place], [id number], [place] tel:[phone] [facility] No Information Jacob Canseco. [address] , [place], [place], [id number], [place]. tel:[phone] Referring Provider: Zac French DO, [address], [place], [address]. tel:[phone] Family History Family Member Type Diagnosis Age At Onset No Information Payers Payer name Insurance type Covered republican ID Authoriza tion(s) [facility] MDCR COMPLETE HMO MB [id number] Social History Type Description Quantity Date Captured [...]
--- OUTSIDE RECORDS SUMMARY | 2024-09-09 22:02 | XMS_ITS | Referral Summary ---
Author Organization [facility] Main [place] Address [address] [place] [address] Care Team Providers Care Mammography Technician Name Role Phone Alex Shoemaker MD Primary Care Provider [phone] Alex Shoemaker MD Unavailable [phone] Allergies Active Allergy Reactions Criticality Noted Date Comments Adhesive Itching Low Codeine Other (See comments),Unknown Low 017 Reaction: Other Iodine Unknown,Other (See comments) Low 017 Reaction: Other Latex Itching,Unknown Low 02/19/2017 Levofloxacin Unknown,Other (See comments) Low 02/19 Reaction: Other Medications FLUAD 3835-3500, 65 YR UP,,PF, 45 mcg (15 mcg [...] on file Legal Sex Female 1:50 AM FORENSICS ANALYST Gender Identity Not on file Sexual Orientation [...] (132 lb 12.8 oz) 019 12:38 PM FORENSICS ANALYST Height 157.5 cm (5' 2 ) 06/17/2018 12:3 8 PM FORENSICS ANALYST Body Mass Index 24.29 06/17/2018 12:38 PM FORENSICS ANALYST Plan of Treatment Not on file Insurance [facility] HMO REF [facility] Address[address] [phone] [facility] MEDICARE AD[facility] Address: [place] [address] Care Teams Mammography Technician Relationship Specialty Start Date End Date Alex Shoemaker MD [address] [place], [place] [id number] PCP - General 02/20/17 Alex Shoemaker MD [address] [facility] [address] [place] [address] Referring Physician Internal Medicine 06/15/18
[2024-09-09 23:40] LABS: Add Urine Microscopic? YES; Appearance Urine Clear (Clear); Bilirubin Urine Negative (Negative); Blood Urine Trace-intact (Negative); Color Urine Light Yellow (Yellow); Glucose Urine UA Negative (Negative); Ketones Urine Negative (Negative); Leukocyte Esterase Ur 2+ LEU/UL (Negative); Nitrate Urine Negative (Negative); Protein Urine Negative (Negative); Specific Grav Ur <= 1.005 (1.010-1.020)
[2024-09-09 23:44] LABS: Squamous Epithelial Cell Urine Moderate /hpf (Few); WBC Urine 16-20 /hpf (0-3)
[2024-09-09 23:45] LABS: Bacteria Urine 3+ /hpf
[2024-09-10] VITALS: BP 140/85; PULSE 75; RESP 18; TEMP 36.6; O2SAT 98
--- NOTE | 2024-09-12 12:55 | PC.NURSE ---
FINAL URINE CULTURE REPORT; NO GROWTH, NO FURTHER ACTION OR TREATMENT NEEDED.
== END 2024-09-10 | disposition home or self-care (01) ==
PROVIDERS: Emergency Provider Emergency Medicine; PCP Family Medicine
DX: S62.101A Fracture of unspecified carpal bone, right wrist, initial encounter for closed fracture (principal); S93.401A Sprain of unspecified ligament of right ankle, initial encounter; E78.2 Mixed hyperlipidemia; E03.9 Hypothyroidism, unspecified; W18.39XA Other fall on same level, initial encounter
CPT/HCPCS: 29125; 29515; 73110; 73200; 73610; 81001; 87086; 99284; L4350

== ENCOUNTER 2024-10-05 12:15 | Outpatient (CLI) | payer MEDICARE, SELFPAY ==
[2024-10-05 12:39] LABS: Basophils Absolute Auto 0.01 K/mm3 (0.00-0.10); Basophils Percent Auto 0.2 % (0.0-1.0); Eosinophils Absolute Auto 0.02 K/mm3 (0.02-0.50); Eosinophils Percent Auto 0.3 % (1.0-6.0); Hematocrit 37.1 % (35.0-42.0); Immature Granulocyte Absolute 0.02 K/mm3 (0.00-0.00); Immature Granulocyte Percent A 0.3 % (0.0-0.0); Lymphocytes Absolute Auto 1.24 K/mm3 (1.10-4.50); Lymphocytes Percent Auto 19.2 % (18.0-42.0); Mean Corpuscular HGB Conc 32.3 g/dL (32-36); Mean Corpuscular Hemoglobin 28.7 pg (27.0-31.0); Mean Corpuscular Volume 88.8 fL (78.0-102.0); Monocytes Absolute Auto 0.46 K/mm3 (0.10-0.90); Monocytes Percent Auto 7.1 % (2.0-11.0); Neutrophils Absolute Auto 4.72 K/mm3 (1.70-7.20); Neutrophils Percent Auto 72.9 % (50.0-70.0); Platelet Count Result 182 K/mm3 (150-420); Red Blood Count 4.18 M/mm3 (4.20-5.40); Red Cell Distribution Width 12.6 % (11.6-14.4); White Blood Count 6.5 K/mm3 (4.8-10.8)
[2024-10-05 15:01] LABS: Alanine Aminotransferase 18 U/L (6-35); Albumin Level 4.2 g/dL (3.5-5.1); Alkaline Phosphatase 72 U/L (38-126); Anion Gap 6 mmol/L (4-12); Aspartate Amino Transferase 29 U/L (14-36); Bilirubin,Total 0.6 mg/dL (0.2-1.3); Blood Urea Nitrogen 14 mg/dL (7-17); Calcium 9.7 mg/dL (8.4-10.2); Carbon Dioxide 29 mmol/L (22-30); Chloride 101 mmol/L (98-107); Estimated Glomerular Filt Rate > 60; Glucose 98 mg/dL (65-110); Osmolality Calculated 282 mOsm/kg (285-295); Potassium 3.2 mmol/L (3.4-5.0); Sodium 136 mmol/L (137-145); Total Protein 6.8 g/dL (6.3-8.2)
[2024-10-05 15:13] LABS: Troponin I < 0.012 ng/mL (0.000-0.034)
== END 2024-10-05 12:16 | disposition home or self-care (01) ==
LOC: CHSLAB 12:16
PROVIDERS: PCP Family Medicine; Visit Provider Family Medicine
DX: R11.10 Vomiting, unspecified (principal)
CPT/HCPCS: 36415; 80053; 84484; 85025

== ENCOUNTER 2024-12-27 09:52 | Outpatient (CLI) | payer MEDICARE, MEDICAID, SELFPAY ==
[2024-12-27 10:15] VITALS: PULSE 67; O2SAT 100
--- OUTSIDE RECORDS SUMMARY | 2024-12-27 10:16 | XMS_ITS | Referral Summary ---
Author Organization [facility] Main [place] Address [address] [place] [address] Care Team Providers Care Lugger Name Role Phone Alex Shoemaker MD Primary Care Provider [phone] Alex Shoemaker MD Unavailable [phone] Allergies Active Allergy Reactions Criticality Noted Date Comments Adhesive Itching Low Codeine Other (See comments),Unknown Low 017 Reaction: Other Iodine Unknown,Other (See comments) Low 017 Reaction: Other Latex Itching,Unknown Low 02/19/2017 Levofloxacin Unknown,Other (See comments) Low 02/19 Reaction: Other Medications FLUAD 7897-1830, 65 YR UP,,PF, 45 mcg (15 mcg [...] on file Legal Sex Female 1:50 AM DAM TENDER ASSISTANT Gender Identity Not on file Sexual Orientation [...] (132 lb 12.8 oz) 019 12:38 PM DAM TENDER ASSISTANT Height 157.5 cm (5' 2) 06/17/2018 12:3 8 PM DAM TENDER ASSISTANT Body Mass Index 24.29 06/17/2018 12:38 PM DAM TENDER ASSISTANT Plan of Treatment Not on file Insurance [facility] MDCR HMO REF Member Subscriber Plan / Payer (Ef fective 2018-Present) Name:Gayatri Connor Relation to Subscriber:Self Name:Gayatri Connor Payer ID:[id number] (NAIC) Type:[facility] MED[facility] Address: [address] [phone] [facility] MEDICARE ADVANTAGE Care Teams Lugger Relationship Specialty Start Date End Date Alex Shoemaker MD [address] [facility] [address] [facility] [address] [place], [place] [address] PCP - General 02/20/17 Alex Shoemaker MD [address] [facility] [address] [facility] [address] [place] [address] Referring Physician Internal Medicine 06/15/18
--- OUTSIDE RECORDS SUMMARY | 2024-12-27 10:16 | XMS_ITS | Clinical Summary ---
Author Organization [facility] Address [address] [facility] [place] [address] Care Team Providers Care Presidential Support Specialist Name Role Phone Alex Shoemaker MD Primary Care Provider [phone] Source Comments [facility] Affiliates and Associated Physician Practices is amultiple site organization consisting of ambulatory clinics and hospital sitesin [place], [place], [place] and [place]. This disclosure is being madepursuant to the Care Everywhere program and may not contain all information available regarding this patient. Last updated 18.[facility] [employer] Social History Tobacco Use Types Packs/Day Years Used Date Smoking Tobacco: Never Assessed Comments Unknown Sex and Gender Information Value Date Recorded Sex Assigned at Not on file Legal Sex Female 10:17 AM SHEET TAKER Gender Identity Not on file Sexual Orientation [...] MEDICARE AWV CALENDAR YEAR 2024 INFLUENZA VACCINE (#1) 2025 HEPATITIS B VACCINE Aged Out No [...] SANCHEZ Subscriber ID:Not on file (Home) Address: [place] [address] Payer ID:Not on file Group ID:Not on file Type:Self Pay Address: [place], [place] UHC MANAGED MEDICARE ADV Care Teams Presidential Support Specialist Relationship Specialty Start Date End Date Alex Shoemaker MD [address] [place] [address] PCP - General 09/26/22
--- OUTSIDE RECORDS SUMMARY | 2024-12-27 10:16 | XMS_ITS | Clinical Summary ---
Author Organization [facility] Address [facility] [place] [address] Care Team Providers Care Lawn Specialist Name Role Phone ChrisMike calvert Primary Care Provider [phone] Allergies Active Allergy Reactions Criticality Noted Date [...] 5:45 PM CDT Height 157.5 cm (5' 2) 01/25/2024 5:45 PM CDT Body Mass Index [...] patient's age to complete this topic Insurance [facility] Care Teams Lawn Specialist Relationship Specialty Start Date End Date Mike Jefferson DO [address] [place] [address] PCP - General FAMILY PRACTICE 04/08/22
--- OUTSIDE RECORDS SUMMARY | 2024-12-27 10:17 | XMS_ITS | Clinical Summary ---
Author Organization [facility] [address] [place] [address] Care Team Providers Care Head Concierge Name Role Phone Alex Shoemaker MD Primary Care Provider [phone] Alex Shoemaker MD Unavailable [phone] Allergies Active Allergy Reactions Criticality Noted Date Comments Adhesive Itching Low Codeine Other (See comments),Unknown Low 017 Reaction: Other Iodine Unknown,Other (See comments) Low 017 Reaction: Other Latex Itching,Unknown Low 02/19/2017 Levofloxacin Unknown,Other (See comments) Low 02/19 Reaction: Other Medications FLUAD [id number], 65 YR UP,,PF, 45 mcg (15 mcg [...] on file Legal Sex Female 1:50 AM 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 Gender Identity Not on file Sexual Orientation [...] (132 lb 12.8 oz) 019 12:38 PM 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 Height 157.5 cm (5' 2) 06/17/2018 12:3 8 PM 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 Body Mass Index 24.29 06/17/2018 12:38 PM 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 Plan of Treatment Health Maintenance Due Date Last Done Comments Depression Screening 1935 Fall Risk Assessment 1935 Osteoporosis Screening-Bone Density Scan 1935 Hepatitis B Screening 1953 Well Visit 65+ 2000 Influenza Vaccine (#1) 2025 , 03/13/2020, 02/17/2019, Additional history exists DTaP/Tdap/Td Vaccine (2 - Td or Tdap) 10/27/2028 10/27/2018 Pneumococcal vaccine 65+ Completed 019, 05/08/2015, 11/29/2009 Zoster Vaccine Completed 06/14/2019, 03/25, 02/04/2012 Insurance [facility] HMO REF [facility] MEDICARE ADVANTAGE Care Teams Head Concierge Relationship Specialty Start Date End Date Alex Shoemaker MD [address] [place] [address] PCP - General 02/20/17 Alex Shoemaker MD [address] [place] [address] Referring Physician Internal Medicine 06/15/18
== END 2024-12-27 09:53 | disposition home or self-care (01) ==
PROVIDERS: PCP Family Medicine; Visit Provider Family Medicine
DX: I50.30 Unspecified diastolic (congestive) heart failure (principal); J96.91 Respiratory failure, unspecified with hypoxia
CPT/HCPCS: 94618